=== PATIENT | male | born 1935 | race Caucasian/White ===

== ENCOUNTER 2016-11-27 08:19 | Emergency (ER) | payer MEDICARE, OTHER ==
[~2016-11-27] VITALS: Ht 177.8 cm; Wt 98.2 kg
[~2016-11-27 08:19] MED LIST: ACET650T7 PO; ALBU8.5H5 IH; ALLO300T74 PO; APIX5TAB; BUME1TAB17 PO; CALC-586 PO; CETI10TA56 PO; FINA5TAB42 PO; GLUC1TAB33 PO; NAPR250T; NITR0.4T39 SL; POTA10TA16 PO; SOTA80TA PO; TAMS0.4C20 PO; [UNRECOGNIZED DRUG - CODE] NS
[2016-11-27 08:20] VITALS: Ht 177.8 cm; Wt 98.2 kg
--- OUTSIDE RECORDS SUMMARY | 2016-11-27 08:23 | XMS REPORT | Referral Summary ---
Author Author [facility], [facility] Organization [facility], [facility] Address Unknown Phone Unavailable Care Team Providers Care Crude Unit Operator Name Role Phone Brooke Clark Primary Care Physician [phone] Encounter VC Date(s): 05/17/16 - 05/17/16 [facility] [place], [address] [place] [id number]- Discharge Diagnosis: Allergic rhinitis (disorder) Discharge Diagnosis: Gout (disorder) Discharge Diagnosis: Osteoarthritis Discharge Diagnosis: Actinic keratosis Discharge Diagnosis: High cholesterol Discharge Diagnosis: Abnormal blood sugar Discharge Diagnosis: Essential hypertension (disorder) Discharge Diagnosis: Asthma Discharge Diagnosis: COPD (chronic obstructive pulmonary disease) Discharge Diagnosis: 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 Discharge Disposition: 01-Home or Self Care Attending Physician: Owen Clark MD Admitting Physician: Owen Clark MD Vital Signs Most recent to 1 oldest [Reference Range]: Temperature Tympanic 36.7 degC [36.6-38.1 degC] (05/17/16 8:54 AM) Peripheral Pulse 65 bpm Rate [60-100 bpm] (05/17/16 8:54 AM) Blood Pressure 138/60 mmHg [90-140/60-90 mmHg] (05/17/16 8:54 AM) SpO2 97 % (05/17/16 8:54 AM) Problem List Condition Effective Dates Status Health Status Informant Actinic Active keratosis(Confirmed) Allergic rhinitis Active (disorder)(Confirmed ) Asthma(Confirmed) Active 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) Abnormal blood Active sugar(Confirmed) Cataract(Confirmed) Active Angina/Chest Active pain(Confirmed) COPD (chronic Active obstructive pulmonary disease)(Confirmed) Essential Active hypertension (disorder)(Confirmed ) Gout Active (disorder)(Confirmed ) High Active cholesterol(Confirme d) Hyperlipidemia(Confi Active rmed) HTN Active (hypertension)(Confi rmed) Basal cell Active carcinoma(Confirmed) Osteoarthritis(Confi Active rmed) Overweight(Confirmed Active ) Prostatism(Confirmed Active ) Pure Active hypercholesterolemia (disorder)(Confirmed ) Tobacco Active patient user(Confirmed) Chicken Active pox(Confirmed) Allergies, Adverse Reactions, Alerts No Known Medication Allergies Medications Aleve 220 mg oral tablet 1 tabs, Oral, BID, 0 Refill(s) Start Date: 09/04/14 Status: Ordered allopurinol 300 mg oral tablet 300 mg 1 tabs, Oral, Daily, # 90 tabs, 2 Refill(s) Start Date: 05/17/16 Status: Ordered Aspirin Low Dose 81 mg, Oral, Daily, 0 Refill(s) Start Date: 09/09/14 Status: Ordered bumetanide 1 mg oral tablet 1 mg 1 tabs, Oral, Daily, # 90 tabs, 2 Refill(s) Start Date: 05/17/16 Status: Ordered Calcium 600+D 1 tabs, Oral, Daily, 0 Refill(s) Start Date: 09/09/14 Status: Ordered Cartia XT 120 mg/24 hours oral capsule, extended release mg caps, Oral, Daily, 0 Refill(s) Start Date: 05/17/16 Status: Ordered clobetasol 0.05% topical ointment 1 [place], Topical, BID, 0 Refill(s) Start Date: 09/04/14 Status: Ordered Eliquis 5 mg oral tablet 5 mg 1 tabs, Oral, BID, # 60 tabs, 0 Refill(s) Start Date: 05/17/16 Status: Ordered Flomax 0.4 mg oral capsule 0.4 mg 1 caps, Oral, Daily, # 90 caps, 2 Refill(s) Start Date: 05/17/16 Status: Ordered glucosamine 1,000 mg, Oral, Daily, 0 Refill(s) Start Date: 09/09/14 Status: Ordered Klor-Con 10 oral tablet, extended release 10 mEq 1 tabs, Oral, Daily, # 90 tabs, 2 Refill(s) Start Date: 05/17/16 Status: Ordered metoprolol succinate 100 mg oral tablet, extended release 50 mg 0.5 tabs, Oral, Daily, # 90 tabs, 2 Refill(s) Start Date: 05/17/16 Status: Ordered Nasacort AQ 55 mcg/inh nasal spray 2 sprays, Nasal, BID, # 6 Each, 3 Refill(s) Start Date: 03/15/15 Status: Ordered Physical Therapy Physical Therapy, See Instructions, Eval and treat as indicated for achilles tendonitis., # 1 Each, 0 Refill(s) Start Date: 09/08/15 Status: Ordered Proscar 5 mg oral tablet See Instructions, Take 1 tablet by mouth daily, # 90 tabs, 2 Refill(s), Take 1 tablet by mouth daily Start Date: 05/17/16 Status: Ordered Ventolin HFA 90 mcg/inh inhalation aerosol 180 mcg 2 puffs, Inhalation, QID, # 3 Each, 3 Refill(s) Start Date: 03/15/15 Status: Ordered ZyrTEC 10 mg, Oral, Daily, 0 Refill(s) Start Date: 09/09/14 Status: Ordered Results Hematology Most recent to 1 oldest [Reference Range]: WBC [4.8-10.8 9.8 10*3/uL 10*3/uL] (05/17/16 9:49 AM) RBC [4.60-6.20] 4.59 *LOW* (05/17/16 9:49 AM) Hgb [14.0-18.0 14.3 gm/dL gm/dL] (05/17/16 9:49 AM) Hct [42.0-52.0 %] 41.9 % *LOW* (05/17/16 9:49 AM) MCV [82.0-99.0 fL] 91.3 fL (05/17/16 9:49 AM) MCH [27.0-32.0 pg] 31.2 pg (05/17/16 9:49 AM) MCHC [32.0-36.0 34.1 gm/dL gm/dL] (05/17/16 9:49 AM) RDW [11.5-14.5 %] 13.1 % (05/17/16 9:49 AM) Platelet [150-400 286 10*3/uL 10*3/uL] (05/17/16 9:49 AM) MPV [8.8-14.8 fL] 11.2 fL (05/17/16 9:49 AM) Immature 0.2 % Granulocytes (05/17/16 9:49 AM) [0.0-1.0 %] Neutrophils [51-75 69 % %] (05/17/16 9:49 AM) Lymphocytes [20-46 20 % %] (05/17/16 9:49 AM) Monocytes [4-11 %] 10 % (05/17/16 9:49 AM) Eosinophils [0-4 %] 2 % (05/17/16 9:49 AM) Basophils [0-2 %] 0 % (05/17/16 9:49 AM) Neutro Absolute 6.70 10*3 [1.90-7.00 10*3] (05/17/16 9:49 AM) Lymph Absolute 1.93 10*3 [0.80-3.30 10*3] (05/17/16 9:49 AM) [place] Absolute 0.97 10*3 [0.30-1.00 10*3] (05/17/16 9:49 AM) Eos Absolute 0.15 10*3 [0.00-0.50 10*3] (05/17/16 9:49 AM) Baso Absolute 0.02 10*3 [0.00-0.20 10*3] (05/17/16 9:49 AM) Chemistry Most recent to 1 oldest [Reference Range]: Sodium Lvl [135-144 138 mEq/L mEq/L] (05/17/16 9:49 AM) Potassium Lvl 4.6 mEq/L [3.5-5.2 mEq/L] (05/17/16 9:49 AM) Chloride [99-111 104 mEq/L mEq/L] (05/17/16 9:49 AM) CO2 [23-31 mEq/L] 27 mEq/L (05/17/16 9:49 AM) AGAP [3-20] 7 (05/17/16 9:49 AM) BUN [8-26 mg/dL] 15 mg/dL (05/17/16 9:49 AM) Glucose Lvl [70-99 101 mg/dL mg/dL] *HI* (05/17/16 9:49 AM) Creatinine Lvl 1.11 mg/dL [0.72-1.25 mg/dL] (05/17/16 9:49 AM) eGFR [>60 mL/min] >60 mL/min 1 (05/17/16 9:49 AM) Calcium Lvl 9.0 mg/dL [8.9-10.5 mg/dL] (05/17/16 9:49 AM) Albumin Lvl [3.4-4.8 4.4 gm/dL gm/dL] (05/17/16 9:49 AM) Total Protein 6.2 gm/dL [6.0-7.6 gm/dL] (05/17/16 9:49 AM) Globulin [1.8-4.0 1.8 gm/dL gm/dL] (05/17/16 9:49 AM) ALT [0-55 U/L] 18 U/L (05/17/16 9:49 AM) AST [5-34 U/L] 19 U/L (05/17/16 9:49 AM) Alk Phos [40-150 128 U/L U/L] (05/17/16 9:49 AM) Bili Total [0.2-1.2 1.0 mg/dL mg/dL] (05/17/16 9:49 AM) Uric Acid [3.5-7.2 5.4 mg/dL mg/dL] (05/17/16 9:49 AM) Chol [0-199 mg/dL] 170 mg/dL (05/17/16 9:49 AM) Trig [0-149 mg/dL] 326 mg/dL *HI* (05/17/16 9:49 AM) HDL [40-84 mg/dL] 31 mg/dL *LOW* (05/17/16 9:49 AM) LDL [0-130 mg/dL] 74 mg/dL (05/17/16 9:49 AM) VLDL Cholesterol 65 mg/dL [0-28 mg/dL] *HI* (05/17/16 9:49 AM) Cardiac Risk 5.5 [0.0-5.7] (05/17/16 9:49 AM) TSH with Reflex Free 1.61 T4 [0.35-4.94] (05/17/16 9:49 AM) Hgb A1c [4.1-5.6 %] 5.5 % (05/17/16 9:49 AM) eAvg Glucose 111.2 mg/dL (05/17/16 9:49 AM) 1Result Comment: Multiply eGFR results by 1.21 for race. Urinalysis Most recent to 1 oldest [Reference Range]: UA Color Yellow (05/17/16 10:16 AM) UA Appear Clear (05/17/16 10:16 AM) UA pH [5.0-8.0] 6.0 (05/17/16 10:16 AM) UA Leuk Est Negative [Negative] (05/17/16 10:16 AM) UA Nitrite Negative [Negative] (05/17/16 10:16 AM) UA Protein Negative [Negative] (05/17/16 10:16 AM) UA Glucose Negative [Negative] (05/17/16 10:16 AM) UA Ketones Trace [Negative] *ABN* (05/17/16 10:16 AM) UA Urobilinogen 0.2 mg/dL [<1.0 mg/dL] (05/17/16 10:16 AM) UA Bili [Negative] Negative (05/17/16 10:16 AM) UA Blood [Negative] Negative (05/17/16 10:16 AM) UA Spec Grav 1.023 [1.003-1.030] (05/17/16 10:16 AM) Type Clean Catch (05/17/16 10:16 AM) Immunizations Vaccine Date Refusal Reason tetanus/diphth/pertuss (Tdap) adult/adol 05/29/06 influenza virus vaccine, inactivated 06/16/15 influenza virus vaccine, inactivated 06/25/07 pneumococcal 23-polyvalent vaccine 07/04/05 zoster vaccine live 01/08/09 Procedures Procedure Date Related Diagnosis Body Site Destruction (eg, laser surgery, 05/17/16 electrosurgery, cryosurgery, chemosurgery, surgical curettement), premalignant lesions (eg, actinic keratoses); first lesion Transesophageal echocardiogram 06/28/15 Cataract of left eye 2009 Nasal Septum Repair 06/15/09 Sinus Surgery 06/15/09 Colonoscopy1 2006 Knee replacement-l 2005 Meniscus Repair 2002 Repair broken knee cap 1946 Cataract of right eye 1cscope wnl, pr hx colon polyps, repeat 5 years. 1998 cscope x3 polyps repeat 5 years;history of polyps repeat 2016 Social History Social History Type Response Smoking Status Former smoker; Type: Cigarettes Assessment and Plan Extracted from: Title: Ambulatory Patient Education Author: Owen Clark MD Date: Allergy Allergies An allergy is an abnormal reaction to a substance by the body's defense system ( immune system). Allergies can develop at any age. WHAT CAUSES ALLERGIES? An allergic reaction happens when the immune system mistakenly reacts to a normally harmless substance, called an allergen, as if it were harmful. The immune system releases antibodies to fight the substance. Antibodies eventually release a chemical called histamine into the bloodstream. The release of histamine is meant to protect the body from infection, but it also causes discomfort. An allergic reaction can be triggered by: Eating an allergen. Inhaling an allergen. Touching an allergen. WHAT TYPES OF ALLERGIES ARE THERE? There are many types of allergies. Common types include: Seasonal allergies. People with this type of allergy are usually allergic to substances that are only present during certain seasons, such as molds and pollens. Food allergies. Drug allergies. Insect allergies. Animal dander allergies. WHAT ARE SYMPTOMS OF ALLERGIES? Possible allergy symptoms include: Swelling of the lips, face, tongue, mouth, or throat. Sneezing, coughing, or wheezing. Nasal congestion. Tingling in the mouth. Rash. Itching. Itchy, red, swollen areas of skin (hives). Watery eyes. Vomiting. Diarrhea. Dizziness. Lightheadedness. Fainting. Trouble breathing or swallowing. Chest tightness. Rapid heartbeat. HOW ARE ALLERGIES DIAGNOSED? Allergies are diagnosed with a medical and family history and one or more of the following: Skin tests. Blood tests. A food diary. A food diary is a record of all the foods and drinks you have in a day and of all the symptoms you experience. The results of an elimination diet. An elimination diet involves eliminating foods from your diet and then adding them back in one by one to find out if a certain food causes an allergic reaction. HOW ARE ALLERGIES TREATED? There is no cure for allergies, but allergic reactions can be treated with medicine. Severe reactions usually need to be treated at a hospital. HOW CAN REACTIONS BE PREVENTED? The best way to prevent an allergic reaction is by avoiding the substance you are allergic to. Allergy shots and medicines can also help prevent reactions in some cases. People with severe allergic reactions may be able to prevent a life- threatening reaction called anaphylaxis with a medicine given right after exposure to the allergen. This information is not intended to replace advice given to you by your health care provider. Make sure you discuss any questions you have with your health care provider. Document Released: 11/13/2003 Document Revised: 09/10/2015 Document Reviewed: [employer] Patient Information 2016 [place]. No follow up information was provided. Extracted from: Title: Office Visit Note Author: Owen Clark MD Date: 05/17/16 Assessment/Plan Abnormal blood sugar This issue was reviewed, appears stable, and current therapy continued except as mentioned. Appropriate lab was reviewed from the most recent appropriate entry and lab was ordered if needed in the cpoe/nursing orders, and follow up recommended generally in 90 days and no later then six months. Actinic keratosis Cryotherapy 10 seconds x2. Routine wound care given. RTC in 30 days if not resolved. Schedule lesion removal here or with Derm for arm lesion. Allergic rhinitis (disorder) This issue was reviewed, appears stable, and current therapy continued except as mentioned. Appropriate lab was reviewed from the most recent appropriate entry and lab was ordered if needed in the cpoe /nursing orders, and follow up recommended generally in 90 days and no later then six months. Asthma This issue was reviewed, appears stable, and current therapy continued except as mentioned. Appropriate lab was reviewed from the most recent appropriate entry and lab was ordered if needed in the cpoe/nursing orders, and follow up recommended generally in 90 days and no later then six months. 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 This issue was reviewed, appears stable, and current therapy continued except as mentioned. Appropriate lab was reviewed from the most recent appropriate entry and lab was ordered if needed in the cpoe/nursing orders, and follow up recommended generally in 90 days and no later then six months. Refill meds. COPD (chronic obstructive pulmonary disease) This issue was reviewed, appears stable, and current therapy continued except as mentioned. Appropriate lab was reviewed from the most recent appropriate entry and lab was ordered if needed in the cpoe/nursing orders, and follow up recommended generally in 90 days and no later then six months. Essential hypertension (disorder) This issue was reviewed, appears stable, and current therapy continued except as mentioned. Appropriate lab was reviewed from the most recent appropriate entry and lab was ordered if needed in the cpoe/nursing orders, and follow up recommended generally in 90 days and no later then six months. The patient reports their blood pressure has been stable at home and is not having any significant or related problems. There has been no chest pain, chest pressure, soa/manrique. Gout (disorder) This issue was reviewed, appears stable, and current therapy continued except as mentioned. Appropriate lab was reviewed from the most recent appropriate entry and lab was ordered if needed in the cpoe/nursing orders, and follow up recommended generally in 90 days and no later then six months. Refill meds, lab pending. High cholesterol This issue was reviewed, appears stable, and current therapy continued except as mentioned. Appropriate lab was reviewed from the most recent appropriate entry and lab was ordered if needed in the cpoe/nursing orders, and follow up recommended generally in 90 days and no later then six months. Lab pending. Osteoarthritis This issue was reviewed, appears stable, and current therapy continued except as mentioned. Appropriate lab was reviewed from the most recent appropriate entry and lab was ordered if needed in the cpoe/nursing orders, and follow up recommended generally in 90 days and no later then six months.
--- OUTSIDE RECORDS SUMMARY | 2016-11-27 08:23 | XMS REPORT | Continuity of Care Document ---
Author Author [facility] Organization [facility] Address Unknown Phone Unavailable Support Name Relationship Address Phone LAWRENCE CALHOUN MD Caregiver [address] [place] [address] Unavailable DEVANTE AMATO MD Caregiver [address] [place] [address] Unavailable GRACIE SWENSON Next Of Kin [address] [place] [address] Insurance Providers Guarantor Adryan Swenson Address [address] [place] [address] Email [email or web address] Payer Medicare Policy Number [id number] Subscriber's Name Adryan Swenson Relationship 18 Self Payer [facility] Preferred Policy Number [id number] Subscriber's Name Gracie Swenson Relationship 01 Spouse Group Number [id number] Advance Directives Directive Response Recorded Date/Time Ordered Resuscitation Status Full Code 09/20/16 8:50am Resuscitation Documents on File No 09/20/16 8:48am DPOA for Healthcare Only Polly TURNER AND NISHA-DAUGHTERS 09/20/16 8:48am Living Will Yes 09/20/16 8:48am Problems Active Problems Medical Problem Onset Date Status Atrial fibrillation with rapid ventricular response Unknown Acute New onset atrial fibrillation Unknown Acute New onset atrial fibrillation Unknown Acute Medications Current Home Medications Medication Dose Units Route Directions Days Qty Instructions Start Date Acetaminophen (Arthritis Pain Relief) 650 Mg Tablet.er 1,300 Oral Daily 06/28/15 Albuterol Sulfate (Proair Hfa) 8.5 Gm Aerosol 2 Puff Inhalation As Needed 11/17/09 Allopurinol 300 Mg Tablet 300 Mg Oral Daily 11/17/09 Apixaban (Eliquis) 5 Mg Tablet Twice A Day 09/20/16 Bumetanide 1 Mg Tablet 1 Tab Oral Daily 06/28/15 Calcium Carbonate/Vitamin D3 (Calcium + D 600 Mg Tablet) 1 Tab Tablet 1 Tab Oral Daily 11/17/09 Cetirizine Hcl (Zyrtec) 10 Mg Tablet 10 Mg Oral Daily 09/20/11 Finasteride 5 Mg Tablet 1 Tab Oral Daily 06/28/15 Gluc Hcl/Gluc Garrido/Ac-D-Glucos (Glucosamine Complex Caplet) 1 G Tablet 1 G Oral Daily 11/17/09 Naproxen (Naprosyn) 250 Mg Tablet 1 Tab Bedtime 04/20/14 Nitroglycerin 0.4 Mg Tab.subl 1 Tab Sublingual Prn Q5 Minutes X3 as needed for Chest Pain 25 04/21/14 Potassium Chloride (Klor-Con M10) 10 Meq Tablet 10 Meq Oral Give With Breakfast Take 1 tablet, by mouth, one time a day (with breakfast). Sotalol Hcl (Sotalol) 80 Mg Tablet 80 Mg Oral Before Meals Twice A Day 30 Days 60 Tablet Take 1 tablet, by mouth, 2 times a day (before meals). Tamsulosin Hcl (Flomax) 0.4 Mg Cap.sr.24h 0.4 Mg Oral Daily 11/17 Triamcinolone Acetonide (Nasacort) 10 Gm Aer.w.adap 2 [place] Nasal Daily 11/17/09 Past Home Medications Medication Directions Ordered Status Aspirin (Aspir 81) 81 Mg Tablet.dr, 1 Tab Oral Daily 04/20/14 Discontinued Fenofibrate Nanocrystallized (Tricor) 145 Mg Tablet, 145 Mg Oral Daily Discontinued Lisinopril/Hydrochlorothiazide (Lisinopril-Hctz 10-12.5 Mg Tab) 1 Each Tablet, 1 Tab Oral Daily 04/20/14 Discontinued Loratadine (Claritin) 10 Mg Tablet, 10 Mg Oral Daily 11/17/09 Discontinued Metoprolol Succinate 100 Mg Tab.er.24h, 0.5 Tab Oral Daily 06/28/15 Discontinued Metoprolol Succinate 100 Mg Tab.er.24h, 1 Tab Oral Daily 04/21/14 Discontinued Metoprolol Succinate 50 Mg Tab.sr.24h, 50 Mg Oral Daily 11/17/09 Discontinued Social History Social History Problem Response Recorded Date/Time Onset Date Status Reason for Hospitalization CARDIOVERSION 09/20/2016 3:32pm Not Applicable Not Applicable Hx Substance Use No 06/28/2015 11:39am Not Applicable Not Applicable Hx Alcohol Use Y SELDOM 06/25/2015 3:07pm Not Applicable Not Applicable Has the pt used tobacco in the last 12 months No 09/20/2016 8:52am Not Applicable Not Applicable Tobacco Usage none 04/20/2014 8:57am Not Applicable Not Applicable Query Response Start Date Stop Date Smoking Status Former smoker Hospital Discharge Instructions Instructions: Care Instructions: I was in the hospital because (patient own words): PATIENT STATES, "ZAP MY HEART" Discharge Diet: cardiac Discharge Activity: ad gaye Follow Up Appointments: FOLLOW UP WITH DR. CALHOUN IN HIS OFFICE SCHEDULED ON 10/05/2016 AT 11:15. Pending Lab / Results: No Pending Lab Patient Instructions: no driving or major decision making x24hrs Expected Signs/Symptoms: mild nausea fatigue or dizziness mild askin itch in chest Notify Physician If: severe dizziness ,cp , dyspnea ,redness During Business Hours:: Please call the physician's office at After Business Hours:: Please call [phone] and have the ore bridge operator page the physician. Pain Management/Treatment: n/a Wound/Incision Care: n/a Condition at time of discharge: Good Plan of Care Discharge Date 09/20/16 3:50pm Instructions/Education Provided DI for Cardioversion Prescriptions See Medication Section Functional Status Query Response Date Recorded Mobility Status Ambulatory September 20, 2016 8:50am Assistive Devices None September 20, 2016 8:50am Activity Limitations Weakness Fatigue September 20, 2016 8:50am Feeding Ability Independent September 20, 2016 8:50am Toileting Ability Independent September 20, 2016 8:50am Grooming Ability Independent September 20, 2016 8:50am Dressing Ability Independent September 20, 2016 8:50am Driving Ability Independent September 20, 2016 8:50am Housework Ability Independent September 20, 2016 8:50am Meal Preparation Ability Independent September 20, 2016 8:50am Stair Climbing Ability Independent September 20, 2016 8:50am Ability to complete ADL's impeded by No change September 20, 2016 8:50am Cognitive/Perceptual Impairments Impaired vision September 20, 2016 8:50am Visual Assistive Devices Glasses With patient September 20, 2016 8:50am Preferred Method of Learning Hands on September 20, 2016 8:50am Allergies, Adverse Reactions, Alerts Allergen Type Severity Reaction Status Last Updated NKDA Allergy Unknown Active 09/20/16 Immunizations Query Response on File Recorded Date/Time Hx Influenza Vaccination Y JUNE 2016 09/20/16 8:52am Hx Pneumococcal Vaccination Y HAS HAD BOTH AND 09/20/16 8:52am Hx Influenza Vaccination Y JUNE 2016 09/20/16 8:52am Influenza Vaccine Hx JUNE 2016 09/20/16 12:27pm Vital Signs Acute Vital Signs Vital Response Date/Time Temperature (Fahrenheit) 98.6 deg F (96.8 - 99.1) 09/20/2016 9:24am Temperature (Calculated Celsius) 37.58437 degrees C (36.0 - 37.3) 09/20/2016 9:24am Pulse Rate (adult) 75 bpm (60 - 100) 09/20/2016 3:00pm Respiratory Rate 16 breaths/min (10 - 20) 09/20/2016 1:21pm O2 Sat by Pulse Oximetry 96 % (90 - 100) 09/20/2016 3:00pm Oxygen Delivery Method Room Air 09/20/2016 3:00pm Oxygen Delivery Method Room Air 09/20/2016 9:24am Oxygen Flow Rate 2.00 L/min 09/20/2016 1:21pm Blood Pressure 154/127 mm Hg 09/20/2016 3:00pm Blood Pressure Source Automatic Cuff 09/20/2016 3:00pm Height (Feet) 5 feet 09/20/2016 8:46am Height (Inches) 10.00 inches 09/20/2016 8:46am Weight (Kilograms) 96.700 kg 09/20/2016 8:46am Body Mass Index (BMI) 30.6 09/20/2016 8:46am Results Laboratory Results Test Name Result Units Flags Reference Collection Date/Time Result Date/ Time Comments White Blood Count 8.6 T/MM3 4.5-11.0 09/20/2016 9:12am 09/20/2016 9: 48am Red Blood Count 4.78 M/MM3 4.50-5.90 09/20/2016 9:12am 09/20/2016 9: 48am Hemoglobin 14.6 GM/DL 13.5-17.5 09/20/2016 9:12am 09/20/2016 9:48am Hematocrit 43.6 % 41-53 09/20/2016 9:12am 09/20/2016 9:48am Mean Corpuscular Volume 91.2 UM3 80-100 09/20/2016 9:12am 09/20/2016 9: 48am Mean Corpuscular Hemoglobin 30.5 UUG 26-34 09/20/2016 9:2016 9:48am Mean Corpuscular Hemoglobin Concent 33.5 GM/DL 31-37 09/20/2016 9:09/20/2016 9:48am RDW Standard Deviation 42.6 FL 36.9-50.2 09/20/2016 9:09/20/2016 9 :48am Platelet Count 243 T/MM3 130-400 09/20/2016 9:09/20/2016 9:48am Mean Platelet Volume 11.2 UM3 9.4-12.4 09/20/2016 9:09/20/2016 9: 48am Neutrophils (%) (Auto) 68.1 % H 33-66 09/20/2016 9:09/20/2016 9: 48am Lymphocytes (%) (Auto) 22.0 % L 23-45 09/20/2016 9:09/20/2016 9: 48am Monocytes (%) (Auto) 7.3 % 0-9.0 09/20/2016 9:09/20/2016 9:48am Eosinophils (%) (Auto) 2.3 % 0-4 09/20/2016 9:09/20/2016 9:48am Basophils (%) (Auto) 0.2 % 0-2 09/20/2016 9:09/20/2016 9:48am Immature Granulocyte % (Auto) 0.1 % 0.0-0.5 09/20/2016 9:2016 9:48am Absolute Neutrophils (auto) 5.9 T/MM3 1.8-7.7 09/20/2016 9:2016 9:48am Absolute Lymphocytes (auto) 1.9 T/MM3 1-4.8 09/20/2016 9:2016 9:48am Absolute Monocytes (auto) 0.6 T/MM3 0-0.8 09/20/2016 9:09/20/2016 9:48am Absolute Eosinophils (auto) 0.2 T/MM3 0-0.5 09/20/2016 9:2016 9:48am Absolute Basophils (auto) 0.0 T/MM3 0-0.2 09/20/2016 9:1209/20/2016 9:48am Absolute Immature Granulocyte (auto 0.01 T/MM3 0.00-0.03 09/20/2016 9: 1209/20/2016 9:48am Prothromb Time International Ratio 1.36 H 0.76-1.04 09/20/2016 9:1209/20/2016 9:55am THERAPUTIC RANGE=2.00-3.00 FOR ANTI-THROMBOSIS THERAPUTIC RANGE=2.50-3.50 FOR IMPLANTED VALVE Icterus Index < 2 0-7 09/20/2016 9:1209/20/2016 9:59am Chemistry Specimen Hemolysis < 15 0-25 09/20/2016 9:1209/20/2016 9 :59am 0-25: Specimen Exhibited No Hemolysis. Turbidity < 20 0-20 09/20/2016 9:1209/20/2016 9:59am Sodium Level 143 MEQ/L 134-144 09/20/2016 9:1209/20/2016 9:59am Potassium Level 4.3 MEQ/L 3.6-5 09/20/2016 9:1209/20/2016 9:59am Chloride Level 102 MEQ/L 98-107 09/20/2016 9:1209/20/2016 9:59am Carbon Dioxide Level 31 MEQ/L H 22-30 09/20/2016 9:1209/20/2016 9: 59am Anion Gap 10 MEQ/L 5-15 09/20/2016 9:1209/20/2016 9:59am Blood Urea Nitrogen 20.0 MG/DL 9-09/20/2016 9:1209/20/2016 9: 59am Creatinine 1.2 MG/DL 0.8-1.5 09/20/2016 9:1209/20/2016 9:59am BUN/Creatinine Ratio 17 RATIO 6-26 09/20/2016 9:1209/20/2016 9:59am Glomerular Filtration Rate Calc 58 09/20/2016 9:1209/20/2016 9: 59am Glucose Level 108 MG/DL 75-110 09/20/2016 9:1209/20/2016 9:59am Calculated Osmolality 279 MOSM/KG 261-280 09/20/2016 9:1209/20/2016 9:59am Calcium Level 9.2 MG/DL 8.4-10.2 09/20/2016 9:1209/20/2016 9:59am Total Bilirubin 1.50 MG/DL H 0.20-1.30 09/20/2016 9:1209/20/2016 9: 59am Alkaline Phosphatase 113 U/L 38-126 09/20/2016 9:1209/20/2016 9: 59am Total Protein 6.6 G/DL 6.3-8.2 09/20/2016 9:1209/20/2016 9:59am Albumin 4.0 G/DL 3.5-5.0 09/20/2016 9:1209/20/2016 9:59am Globulin 2.6 G/DL 2.4-3.6 09/20/2016 9:1209/20/2016 9:59am Albumin/Globulin Ratio 1.5 RATIO 1.1-2.2 09/20/2016 9:1209/20/2016 9 :59am Aspartate Amino Transf (AST/SGOT) 27 U/L 17-59 09/20/2016 9:122016 9:59am Alanine Aminotransferase (ALT/SGPT) 33 U/L 21-72 09/20/2016 9:12 9:59am Magnesium Level 1.8 MG/DL 1.6-2.3 09/20/2016 9:1209/20/2016 9:59am Thyroid Stimulating Hormone (TSH) 1.63 MIU/L 0.47-4.68 09/20/2016 9: 1209/20/2016 10:29am Procedures No known history of procedures. Encounters Encounter Location Arrival/Admit Date Discharge/Depart Date Attending Provider Departed [facility] 09/20/16 8:22am 09/20/16 3:50pm LAWRENCE CALHOUN MD
--- OUTSIDE RECORDS SUMMARY | 2016-11-27 08:23 | XMS REPORT | Continuity of Care Document ---
Author Author [facility] Organization [facility] Address Unknown Phone Unavailable Support Name Relationship Address Phone ENRIQUE FOUNTAIN MD Caregiver [address] [place] [phone] ARA LEE MD Caregiver [address] [place] [address] LAWRENCE CALHOUN MD Caregiver [address] [facility] [address] [place] [phone] GRACIE SWENSON Next Of Kin [address] [place] [address] Insurance Providers Payer Name Policy Number Subscriber Name Relationship Medicare [id number] Adryan Swenson 18 [facility] Other [id number] Gracie Swenson 01 Spouse Advance Directives Directive Response Recorded Date/Time Advanced Directives Type None 04/20/14 11:19am Ordered Resuscitation Status Full Code 04/20/14 10:17am Chief Complaint and Reason for Visit Chief Complaint NEW ONSET ATRIAL FIB WITH RVR Reason for Visit New onset atrial fibrillation Atrial fibrillation with rapid ventricular response New onset atrial fibrillation Problems Medical Problems Problem Onset Date Status New onset atrial fibrillation Unknown Active Atrial fibrillation with rapid ventricular response Unknown Active New onset atrial fibrillation Unknown Active Medications Medication Dose Route Sig Days/Qty Instructions Order Date Discontinued Date Status Tamsulosin Hcl 0.4 Mg PO DAILY 11/17/09 Active Metoprolol Succinate 50 Mg PO DAILY 11/17/09 04/21/14 Discontinued Allopurinol 300 Mg PO DAILY 11/17/09 Active Fenofibrate Nanocrystallized 145 Mg PO DAILY 11/17/09 04/20/14 Discontinued Loratadine 10 Mg PO DAILY 11/17/09 09/20/11 Discontinued Triamcinolone Acetonide 2 [place] NS TWICE A DAY 11/17/09 Active Albuterol Sulfate 2 Puff IH NEEDED 11/17/09 Active Gluc Hcl/Gluc Garrido/Ac-D-Glucos 1 G PO DAILY 11/17/09 Active Calcium Carbonate/Vitamin D3 2 Tab PO DAILY 11/17/09 Active Cetirizine Hcl 10 Mg PO DAILY 09/20/11 Active Lisinopril/Hydrochlorothiazide 1 Tab PO DAILY 04/20/14 04/21/14 Discontinued Aspirin 1 Tab PO DAILY 04/20/14 Active Naproxen 1 Tab TWICE A DAY 04/20/14 Active Nitroglycerin 1 Tab SL PRN Q5 MINUTES X3 PRN CHEST PAIN 25 Qty Active Metoprolol Succinate 1 Tab PO DAILY 90 Qty 04/21/14 Active Social History Social History Problem Response Recorded Date/Time Smoking Status Former smoker 04/20/2014 11:13am When did patient START smoking? 10 YRS. OLD 04/20/2014 11:13am When did patient STOP smoking? 1970 04/20/2014 11:13am Hx Substance Use No 04/20/2014 10:25am Hx Alcohol Use Y SELDOM 04/20/2014 10:25am Has the pt used tobacco in the last 12 months No 04/20/2014 11:13am Hospital Discharge Instructions Instructions: Care Instructions: Reason for Hospitalization: NEW ONSET A FIB I was in the hospital because (patient own words): "I WAS HAVING POSSIBLE HEART PROBLEMS" Discharge Diet: HEART HEALTHY Discharge Activity: REGULAR ACTIVITY; NO HEAVY EXERTION Follow Up Appointments: STRESS ECHOCARDIOGRAM 05/01 AT 12:00 FOLLOW UP APPOINTMENT WITH DR. CALHOUN 05/18 AT 2:45 Condition at time of discharge: Good Wound/Incision Care: WOUND VAC PROVIDED BY [facility] Condition at time of discharge: Good Worsening abdominal pain, fever, nausea, diarrhea or inability to keep PO fluids down General Information: n/a Condition at time of discharge: Good Discharge Patient: Goal: Understand discharge plan Patient Instructions: see patient instructions Notify Physician If: Call your Surgeon if you have: 1.Chest pain, difficulty breathing, fever>100.5 degrees, chills, heart rate >100, confusion, or persistent nausea/vomitting. 2.Severe pain, swelling, redness, or warmth in either of your legs. 3.During office hours, call [phone] 4. After hours, please call [facility] at [phone], and have the broom machine operator page your Surgeon IN THE EVENT OF AN EMERGENCY, seek medical care at the nearest Emergency Room General Information: Please make a follow up with Dr. Waller in regards to the questionable pulmonary nodule seen on CXR. It likely appears as artifact, but follow up is warrented in 2 weeks. Condition at time of discharge: Good Care Plan Discharge Patient: Goal: Understand discharge plan Patient Instructions: see patient instructions Plan of Care Discharge Date 04/21/14 1:55pm Disposition 01 DISCHARGED HOME, SELF-CARE Instructions/Education Provided Atrial Fibrillation Nitroglycerin Metoprolol Prescriptions See Medications Section Functional Status Query Response Date Recorded Physical Hygiene Self April 20, 2014 10:25am Disabilities None April 20, 2014 10:25am Devices Used None April 20, 2014 10:25am Dressing Self April 20, 2014 10:25am Ambulation Self April 20, 2014 10:25am Diet Self April 20, 2014 10:25am Mental Status Alert April 20, 2014 10:13am Disabilities None April 20, 2014 10:25am Devices Used None April 20, 2014 10:25am Physical Hygiene Self April 20, 2014 10:25am Dressing Self April 20, 2014 10:25am Ambulation Self April 20, 2014 10:25am Diet Self April 20, 2014 10:25am Allergies, Adverse Reactions, Alerts Allergen Type Severity Reaction Status Last Updated NKDA Allergy Unknown Active 04/20/14 Immunizations Name Given Type Hx Influenza Vaccination Y FALL 2012 Historical Hx Pneumococcal Vaccination Y 2006 Historical Hx Influenza Vaccination Y FALL 2012 Historical Vital Signs Acute Vital Signs Vital Response Date/Time Temperature (Fahrenheit) 97.2 deg F (96.8 - 99.1) Temperature (Calculated Celsius) 36.94924 degrees C (36.0 - 37.3) Temperature Source Oral Pulse Rate (adult) 54 bpm (60 - 100) Height 5 ft 10 in Weight 216 lb Body Mass Index 31.0 kg/m^2 Results Test Source Date Result Interp. Ref. Range Comments Activated Partial Thromboplast Time April 20, 2014 8:18am 29.3 SEC N 24 -36 Alanine Aminotransferase (ALT/SGPT) April 20, 2014 8:18am 34 U/L N 21- 72 Albumin April 20, 2014 8:18am 4.0 G/DL N 3.5-5.0 Albumin/Globulin Ratio April 20, 2014 8:18am 1.7 RATIO N 1.1-2.2 Alkaline Phosphatase April 20, 2014 8:18am 120 U/L N 38-126 Anion Gap April 20, 2014 8:18am 11 MEQ/L N 5-15 Aspartate Amino Transf (AST/SGOT) April 20, 2014 8:18am 27 U/L N 17-59 BUN/Creatinine Ratio April 20, 2014 8:18am 16 RATIO N 6-26 Basophils # (Auto) April 20, 2014 8:18am 0.0 T/MM3 N 0-0.2 Basophils (%) (Auto) April 20, 2014 8:18am 0.3 % N 0-2 Blood Urea Nitrogen April 20, 2014 8:18am 17.0 MG/DL N 9-20 Calcium Level April 20, 2014 8:18am 8.8 MG/DL N 8.4-10.2 Calculated Osmolality April 20, 2014 8:18am 257 MOSM/KG L 261-280 Carbon Dioxide Level April 20, 2014 8:18am 24 MEQ/L N 22-30 Chemistry Specimen Hemolysis April 21, 2014 5:17am 21 N 0-25 0-25: No Hemolysis.26-70: Slight Hemolysis - can falsely elevate K and Urine Protein. 71-285: Moderate Hemolysis - can falsely elevate K, Troponin I, CA 19-9, PTH, CSF GLucose, and Urine Protein, and can falsely decrease Phenytoin. 286-999: Gross Hemolysis - can falsely elevate K, Troponin I, CA 19-9, PTH, CSF Glucose, and Urine Protine, and can falsely decrease Phenytoin. Recommend specimen recollection. Chloride Level April 20, 2014 8:18am 96 MEQ/L L 98-107 Creatinine April 20, 2014 8:18am 1.1 MG/DL N 0.8-1.5 Eosinophils # (Auto) April 20, 2014 8:18am 0.5 T/MM3 N 0-0.5 Eosinophils (%) (Auto) April 20, 2014 8:18am 4.3 % H 0-4 Globulin April 20, 2014 8:18am 2.4 G/DL N 2.4-3.6 Glomerular Filtration Rate Calc April 20, 2014 8:18am 65 - Glucose Level April 20, 2014 8:18am 138 MG/DL H 75-110 Hematocrit April 20, 2014 8:18am 43.3 % N 41-53 Hemoglobin April 20, 2014 8:18am 15.5 GM/DL N 13.5-17.5 Icterus Index April 20, 2014 8:18am < 2 0-7 Immature Granulocyte # (Auto) April 20, 2014 8:18am 0.02 T/MM3 N 0.00- 0.03 Immature Granulocyte % (Auto) April 20, 2014 8:18am 0.2 % N 0.0-0.5 Lymphocytes # (Auto) April 20, 2014 8:18am 2.1 T/MM3 N 1-4.8 Lymphocytes (%) (Auto) April 20, 2014 8:18am 18.5 % L 23-45 Mean Corpuscular Hemoglobin April 20, 2014 8:18am 31.7 UUG N 26-34 Mean Corpuscular Hemoglobin Concent April 20, 2014 8:18am 35.8 GM/DL N 31-37 Mean Corpuscular Volume April 20, 2014 8:18am 88.5 UM3 N 80-100 Mean Platelet Volume April 20, 2014 8:18am 11.0 UM3 N 9.4-12.4 Monocytes # (Auto) April 20, 2014 8:18am 0.7 T/MM3 N 0-0.8 Monocytes (%) (Auto) April 20, 2014 8:18am 6.4 % N 0-9.0 FL-Ote-E-Type Natriuretic Peptide April 20, 2014 8:18am 229 PG/ML H 0- 175 Rule in cut points: <50 years old=450; 50-75 years old=900; >75 years old=1800; When utilizing ProBNP rule-in cut points, adjustment for impaired renal function is typically not required. Neutrophils # (Auto) April 20, 2014 8:18am 8.1 T/MM3 H 1.8-7.7 Neutrophils (%) (Auto) April 20, 2014 8:18am 70.3 % H 33-66 Platelet Count April 20, 2014 8:18am 312 T/MM3 N 130-400 Potassium Level April 20, 2014 8:18am 4.5 MEQ/L N 3.6-5 Prothromb Time International Ratio April 21, 2014 5:17am 1.04 N 0.81- 1.09 THERAPUTIC RANGE=2.00-3.00 FOR ANTI-THROMBOSIS THERAPUTIC RANGE=2.50- 3.50 FOR IMPLANTED VALVE RDW Standard Deviation April 20, 2014 8:18am 38.9 FL N 36.9-50.2 Red Blood Count April 20, 2014 8:18am 4.89 M/MM3 N 4.50-5.90 Sodium Level April 20, 2014 8:18am 131 MEQ/L L 134-144 Thyroid Stimulating Hormone (TSH) April 20, 2014 8:18am 1.57 MIU/L N 0.47-4.68 Total Bilirubin April 20, 2014 8:18am 1.00 MG/DL N 0.20-1.30 Total Protein April 20, 2014 8:18am 6.4 G/DL N 6.3-8.2 Troponin I April 21, 2014 5:17am 0.037 ng/ml N 0-0.12 COMMENT TROPININ Q8H X3 Turbidity April 20, 2014 8:18am < 20 0-20 White Blood Count April 20, 2014 8:18am 11.5 T/MM3 H 4.5-11.0 Name: ADRYAN SWENSON Unit #: [id number] : 1935 Sex: M Loc / Svc: ED DOS: 04/20/14 Signed Report #: [id number] DIAGNOSTIC IMAGING REPORT TYPE OF EXAM: CHEST 1 VIEW Dictated By: GUILHERME WALLER MD INDICATION: ITS.REASON: chest pain, afib CHEST 1 VIEW: Comparison: None FINDINGS: The lungs are clear. There is no abnormal airspace opacity, pleural effusion or pneumothorax identified. The heart size, pulmonary vasculature and mediastinum are within normal limits. IMPRESSION: No acute cardiopulmonary abnormality. . Procedures No known history of procedures. Encounters Encounter Location Date/Time Discharged Inpatient [facility] 04/20/14 10:17am Recent Diagnosis New onset atrial fibrillation Atrial fibrillation with rapid ventricular response New onset atrial fibrillation
--- OUTSIDE RECORDS SUMMARY | 2016-11-27 08:23 | XMS REPORT | Continuity of Care Document ---
Author Author [facility] Organization [facility] Address Unknown Phone Unavailable Allergies Active Description Code Type Severity Reaction Onset Reported/Identified Relationship to Patient Clinical Status Yes No Known Medication Allergies NKMA N/A N/A 09/09/2014 Medications Problems Procedures Results Encounters ACCT No. Visit Date/Time Discharge Status Pt. Type Provider Facility Loc./Unit Complaint [id number] 11/15/2016 07:45:00 2016 23:59:00 DIS Outpatient Owen Clark [facility] New FM 6 mo galilea [id number] 05/17/2016 08:43:00 2015 23:59:00 DIS Outpatient Owen Clark [facility] New FM TCPA medication check [id number] 01/10/2016 13:53:00 2015 23:59:00 DIS Outpatient Guillermina Menendez [facility] New FM ACC hurt right foot [id number] 11/18/2015 07:41:00 2015 23:59:00 DIS Outpatient Owen Clark [facility] New FM Followup pain in ankle [id number] 09/08/2015 14:44:00 2015 23:59:00 DIS Outpatient Owen Clark [facility] New FM Tendonitis in right foot [id number] 08/04/2015 14:45:00 2014 23:59:00 DIS Outpatient Owen Clark [facility] FM NPV Dr Jennings pt to est [id number] 03/15/2015 13:20:00 2014 23:59:00 DIS Outpatient Calixto Jennings [facility] New FM med ck [id number] 09/09/2014 10:13:00 2014 23:59:00 DIS Outpatient Calixto Jennings [facility] New FM Check up
--- OUTSIDE RECORDS SUMMARY | 2016-11-27 08:23 | XMS REPORT | Referral Summary ---
Author Author [facility], [facility] Organization [facility] Address Unknown Phone Unavailable Care Team Providers Care Shipping Room Supervisor Name Role Phone Brooke Clark Primary Care Physician [phone] Encounter VC Date(s): 03/15/15 - 03/15/15 [facility], [address] [place] [id number] Discharge Disposition: 01-Home or Self Care Attending Physician: Calixto Jennings MD Admitting Physician: Calixto Jennings MD Vital Signs Most recent to 1 oldest [Reference Range]: Temperature Tympanic 36.1 degC [36.6-38.1 degC] *LOW* (03/15/15 1:31 PM) Peripheral Pulse 76 bpm Rate [60-100 bpm] (03/15/15 1:31 PM) Blood Pressure 150/68 mmHg [90-140/60-90 mmHg] *HI* (03/15/15 1:31 PM) Problem List Condition Effective Dates Status Health Status Informant Allergic rhinitis Active (disorder)(Confirmed ) Asthma(Confirmed) Active 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) Cataract(Confirmed) Active Angina/Chest Active pain(Confirmed) COPD (chronic [...] # 90 tabs, 2 Refill(s) Start Date: 08/04/15 Status: Ordered Aspirin Low Dose 81 mg, Oral, Daily, 0 Refill(s) Start Date: 09/09/14 Status: Ordered bumetanide 1 mg oral tablet 1 mg 1 tabs, Oral, Daily, # 90 tabs, 2 Refill(s) Start Date: 08/04/15 Status: Ordered Calcium 600+D 1 tabs, Oral, Daily, 0 Refill(s) Start Date: 09/09/14 Status: Ordered clobetasol 0.05% topical ointment 1 austin, Topical, BID, 0 Refill(s) Start Date: 09/04/14 Status: Ordered Flomax 0.4 mg oral capsule 0.4 mg 1 caps, Oral, Daily, # 90 caps, 2 Refill(s) Start Date: 08/04/15 Status: Ordered glucosamine 1,000 mg, Oral, Daily, 0 Refill(s) Start Date: 09/09/14 Status: Ordered Klor-Con 10 oral tablet, extended release 10 mEq 1 tabs, Oral, Daily, # 90 tabs, 2 Refill(s) Start Date: 08/04/15 Status: Ordered metoprolol succinate 100 mg oral tablet, extended release 50 mg 0.5 tabs, Oral, Daily, # 90 tabs, 3 Refill(s) Start Date: 03/15/15 Status: Ordered Nasacort AQ 55 mcg/inh nasal spray 2 sprays, Nasal, BID, # 6 Each, 3 Refill(s) Start Date: 03/15/15 Status: Ordered Physical Therapy Physical Therapy, See Instructions, Eval and treat as indicated for achilles tendonitis., # 1 Each, 0 Refill(s) Start Date: 09/08/15 Status: Ordered Proscar 5 mg oral tablet See Instructions, Take 1 tablet by mouth daily, # 90 tabs, eRx: [facility], Take 1 tablet by mouth daily Start Date: 07/19/15 Status: Ordered Ventolin HFA 90 mcg/inh inhalation aerosol 180 mcg 2 puffs, Inhalation, QID, # 3 Each, 3 Refill(s) Start Date: 03/15/15 Status: Ordered ZyrTEC 10 mg, Oral, Daily, 0 Refill(s) Start Date: 09/09/14 Status: Ordered Results No data available for this section Immunizations Vaccine Date Refusal Reason tetanus/diphth/pertuss (Tdap) adult/adol 05/29/06 influenza virus vaccine, inactivated 06/16/15 influenza virus vaccine, inactivated 06/25/07 pneumococcal 23-polyvalent vaccine 07/04/05 zoster vaccine live 01/08/09 Procedures Procedure Date Related Diagnosis Body Site Transesophageal echocardiogram 06/28/15 Cataract of left eye 2009 Nasal Septum Repair 06/15/09 Sinus Surgery 06/15/09 Colonoscopy1 2006 Knee replacement-l 2004 Meniscus Repair 2002 Repair broken knee cap 1946 Cataract of right eye 1cscope wnl, pr hx colon polyps, repeat 5 years. 1998 cscope x3 polyps repeat 5 years;history of polyps repeat 2016 Social History Social History Type Response Smoking Status Former smoker; Type: Cigarettes Assessment and Plan Extracted from: Title: Office Visit Note Author: Calixto Jennings MD Date: 03/15/15 Assessment/Plan COPD (chronic obstructive pulmonary disease) Essential hypertension (disorder) Gout (disorder) High cholesterol Prostatism Plan: I am adding hydrochlorothiazide for your edema and slightly elevated blood pressure. Continue all other current medications. Follow-up in 6 months. At this time we discussed also holding Aleve been taking Tylenol to see if that would be sufficient for your thumb pain. Orders: albuterol, 180 mcg 2 puffs, Inhalation, QID, # 3 Each, 3 Refill(s) hydrochlorothiazide, 12.5 mg 1 tabs, Oral, Daily, # 90 tabs, 0 Refill(s), Pharmacy: [facility], 1 tabs Oral Daily metoprolol, 100 mg 1 tabs, Oral, Daily, # 90 tabs, 3 Refill(s) tamsulosin, 0.4 mg 1 caps, Oral, Daily, # 90 caps, 3 Refill(s) triamcinolone nasal, 2 sprays, Nasal, BID, # 6 Each, 3 Refill(s)
--- OUTSIDE RECORDS SUMMARY | 2016-11-27 08:23 | XMS REPORT | Referral Summary ---
Author Author [facility] Organization [facility] Address Unknown Phone Unavailable Care Team Providers Care Medical Assistant Ob Gyn Name Role Phone Brooke Clark Primary Care Physician [phone] Encounter VC Date(s): 11/18/15 - 11/18/15 [facility], [address] [place] [address] Discharge Disposition: 01-Home or Self Care Attending Physician: Owen Clark MD Admitting Physician: Owen Clark MD Vital Signs Most recent to 1 oldest [Reference Range]: Temperature Tympanic 36.2 degC [36.6-38.1 degC] *LOW* (11/18/15 8:04 AM) Blood Pressure 160/71 mmHg [90-140/60-90 mmHg] *HI* (11/18/15 8:04 AM) Problem List Condition Effective Dates Status [...] tablet by mouth daily, # 90 tabs, 1 Refill(s), Take 1 tablet by mouth daily Start Date: 11/18/15 Status: Ordered Ventolin HFA 90 mcg/inh inhalation [...] Septum Repair 06/15/09 Sinus Surgery 06/15/09 Colonoscopy1 2005 Knee replacement-l 2005 Meniscus Repair 2002 Repair broken knee cap 1946 Cataract of right eye 1cscope wnl, pr hx colon polyps, repeat 5 years. 1998 cscope x3 polyps repeat 5 years;history of polyps repeat 2016 Social History Social History Type Response Smoking Status Former smoker; Type: Cigarettes Assessment and Plan Extracted from: Title: Ambulatory Patient Education Author: Owen Clark MD Date: Family Medicine Asthma Asthma is a recurring condition in which the airways tighten and narrow. Asthma can make it difficult to breathe. It can cause coughing, wheezing, and shortness of breath. Asthma episodes, also called asthma attacks, range from minor to life-threatening. Asthma cannot be cured, but medicines and lifestyle changes can help control it. CAUSES Asthma is believed to be caused by inherited (genetic) and environmental factors , but its exact cause is unknown. Asthma may be triggered by allergens, lung infections, or irritants in the air. Asthma triggers are different for each person. Common triggers include: Animal dander. Dust mites. Cockroaches. Pollen from trees or grass. Mold. Smoke. Air pollutants such as dust, household phd intern, hair sprays, aerosol sprays, paint fumes, strong chemicals, or strong odors. Cold air, weather changes, and winds (which increase molds and pollens in the air). Strong emotional expressions such as crying or laughing hard. Stress. Certain medicines (such as aspirin) or types of drugs (such as beta- blockers). Sulfites in foods and drinks. Foods and drinks that may contain sulfites include dried fruit, potato chips, and sparkling grape juice. Infections or inflammatory conditions such as the flu, a cold, or an inflammation of the nasal membranes (rhinitis). Gastroesophageal reflux disease (GERD). Exercise or strenuous activity. SYMPTOMS Symptoms may occur immediately after asthma is triggered or many hours later. Symptoms include: Wheezing. Excessive nighttime or greens or grounds superintendent coughing. Frequent or severe coughing with a common cold. Chest tightness. Shortness of breath. DIAGNOSIS The diagnosis of asthma is made by a review of your medical history and a physical exam. Tests may also be performed. These may include: Lung function studies. These tests show how much air you breathe in and out. Allergy tests. Imaging tests such as X-rays. TREATMENT Asthma cannot be cured, but it can usually be controlled. Treatment involves identifying and avoiding your asthma triggers. It also involves medicines. There are 2 classes of medicine used for asthma treatment: Controller medicines. These prevent asthma symptoms from occurring. They are usually taken every day. Reliever or rescue medicines. These quickly relieve asthma symptoms. They are used as needed and provide short-term relief. Your health care provider will help you create an asthma action plan. An asthma action plan is a written plan for managing and treating your asthma attacks. It includes a list of your asthma triggers and how they may be avoided. It also includes information on when medicines should be taken and when their dosage should be changed. An action plan may also involve the use of a device called a peak flow meter. A peak flow meter measures how well the lungs are working. It helps you monitor your condition. HOME CARE INSTRUCTIONS Take medicines only as directed by your health care provider. Speak with your health care provider if you have questions about how or when to take the medicines. Use a peak flow meter as directed by your health care provider. Record and keep track of readings. Understand and use the action plan to help minimize or stop an asthma attack without needing to seek medical care. Control your home environment in the following ways to help prevent asthma attacks: Do not smoke. Avoid being exposed to secondhand smoke. Change your heating and air conditioning filter regularly. Limit your use of fireplaces and wood stoves. Get rid of pests (such as roaches and mice) and their droppings. Throw away plants if you see mold on them. Clean your floors and dust regularly. Use unscented cleaning products. Try to have someone else vacuum for you regularly. Stay out of rooms while they are being vacuumed and for a short while afterward. If you vacuum, use a dust mask from a hardware store, a double-layered or microfilter vacuum spinning frame cleaner bag, or a vacuum spinning frame cleaner with a HEPA filter. Replace carpet with wood, tile, or vinyl uriah. Carpet can trap dander and dust. Use allergy-proof pillows, mattress covers, and box spring covers. Wash bed sheets and blankets every week in hot water and dry them in a dryer. Use blankets that are made of polyester or cotton. Clean bathrooms and joy with bleach. If possible, have someone repaint the eng in these rooms with mold-resistant paint. Keep out of the rooms that are being cleaned and painted. Wash hands frequently. SEEK MEDICAL CARE IF: You have wheezing, shortness of breath, or a cough even if taking medicine to prevent attacks. The colored mucus you cough up (sputum) is thicker than usual. Your sputum changes from clear or white to yellow, green, gallagher, or bloody. You have any problems that may be related to the medicines you are taking (such as a rash, itching, swelling, or trouble breathing). You are using a reliever medicine more than 23 times per week. Your peak flow is still at 5079% of your personal best after following your action plan for 1 hour. You have a fever. SEEK IMMEDIATE MEDICAL CARE IF: You seem to be getting worse and are unresponsive to treatment during an asthma attack. You are short of breath even at rest. You get short of breath when doing very little physical activity. You have difficulty eating, drinking, or talking due to asthma symptoms. You develop chest pain. You develop a fast heartbeat. You have a bluish color to your lips or fingernails. You are light-headed, dizzy, or faint. Your peak flow is less than 50% of your personal best. MAKE SURE YOU: Understand these instructions. Will watch your condition. Will get help right away if you are not doing well or get worse. This information is not intended to replace advice given to you by your health care provider. Make sure you discuss any questions you have with your health care provider. Document Released: 08/20/2006 Document Revised: 01/04/2015 Document Reviewed: ExitCare Patient Information 2015 [employer]. No follow up information was provided. Extracted from: Title: Office Visit Note Author: Owen Clark MD Date: 11/18/15
--- OUTSIDE RECORDS SUMMARY | 2016-11-27 08:23 | XMS REPORT | Referral Summary ---
Author Author [facility] Organization [facility] Address Unknown Phone Unavailable Care Team Providers Care Child Care Lead Teacher Name Role Phone Brooke Clark Primary Care Physician [phone] Encounter VC Date(s): 09/08/15 - 09/08/15 [facility], Family [address] [place] [address]- Discharge Disposition: 01-Home or Self Care Attending Physician: Owen Clark MD Admitting Physician: Owen Clark MD Vital Signs Most recent to 1 oldest [Reference Range]: Blood Pressure 140/70 mmHg [90-140/60-90 mmHg] (09/08/15 2:52 PM) Problem List Condition Effective Dates Status [...] polyps repeat 5 years;history of polyps repeat 2017 Social History Social History Type Response Smoking Status Former smoker; Type: Cigarettes Assessment and Plan Extracted from: Title: Ambulatory Patient Education Author: Owen Clark MD Date: 09/08/15 Musculoskeletal Bursitis Bursitis is a swelling and soreness (inflammation) of a fluid-filled sac (bursa ) that overlies and protects a joint. It can be caused by injury, overuse of the joint, arthritis or infection. The joints most likely to be affected are the elbows, shoulders, hips and knees. HOME CARE INSTRUCTIONS Apply ice to the affected area for 15-20 minutes each hour while awake for 2 days. Put the ice in a plastic bag and place a towel between the bag of ice and your skin. Rest the injured joint as much as possible, but continue to put the joint through a full range of motion, 4 times per day. (The shoulder joint especially becomes rapidly "frozen" if not used.) When the pain lessens, begin normal slow movements and usual activities. Only take [id number] or prescription medicines for pain, discomfort or fever as directed by your caregiver. Your caregiver may recommend draining the bursa and injecting medicine into the bursa. This may help the healing process. Follow all instructions for follow-up with your caregiver. This includes any orthopedic referrals, physical therapy and rehabilitation. Any delay in obtaining necessary care could result in a delay or failure of the bursitis to heal and chronic pain. SEEK IMMEDIATE MEDICAL CARE IF: Your pain increases even during treatment. You develop an oral temperature above 102 F (38.9 C) and have heat and inflammation over the involved bursa. MAKE SURE YOU: Understand these instructions. Will watch your condition. Will get help right away if you are not doing well or get worse. Document Released: 08/17/2001 Document Revised: 11/11/2012 Document Reviewed: ExitCare Patient Information 2015 [email or web address]. This information is not intended to replace advice given to you by your health care provider. Make sure you discuss any questions you have with your health care provider. No follow up information was provided. Extracted from: Title: Office Visit Note Author: Owen Clark MD Date: 09/08/15 Assessment/Plan COPD (chronic obstructive pulmonary disease) This issue was reviewed, appears stable, and current therapy continued except as mentioned. Appropriate lab was reviewed from the most recent appropriate entry and lab was ordered if needed in the cpoe/nursing orders, and follow up recommended generally in 90 days and no later then six months. Gout (disorder) This issue was reviewed, appears stable, and current therapy continued except as mentioned. Appropriate lab was reviewed from the most recent appropriate entry and lab was ordered if needed in the cpoe/nursing orders, and follow up recommended generally in 90 days and no later then six months. Lab reviewed. HTN (hypertension) This issue was reviewed, appears stable, and [...] been no chest pain, chest pressure, soa/manrique. Hyperlipidemia This issue was reviewed, appears stable, and current therapy continued except as mentioned. Appropriate lab was reviewed from the most recent appropriate entry and lab was ordered if needed in the cpoe/nursing orders, and follow up recommended generally in 90 days and no later then six months. Lab reviewed. Osteoarthritis This issue was reviewed, appears stable, and current therapy continued except as mentioned. Appropriate lab was reviewed from the most recent appropriate entry and lab was ordered if needed in the cpoe/nursing orders, and follow up recommended generally in 90 days and no later then six months. Tendonitis, Achilles, right Hand outs given. Podiatry discussed and declined. PT script given. Xray and venous doppler discussed to check for dvt and that was declined due to lack ofcalf pain and lack of swelling. Orders: Misc Medication, Physical Therapy, See Instructions, Eval and treat as indicated for achilles tendonitis., # 1 Each, 0 Refill(s)
--- OUTSIDE RECORDS SUMMARY | 2016-11-27 08:23 | XMS REPORT | Continuity Of Care Document ---
Author Author [facility] Organization [facility] Address [address] [place] [address] Phone Care Team Providers Care Nursing Informatics Analyst Name Role Phone FARNAZ LORENZANA, CHAD AT DAY LOERNZANA, S Unavailable Results Lab Results Visit/Account #[id number] (January 29, 2016 2:10pm - January 29, 2016 3:48pm) Test Result Date/Time 30930-5: COMPLETE BLOOD COUNT WITH DIFF WHITE BLOOD COUNT(4.0-11.0 10E3/UL) 10.9 10E3/UL January 29, 2016 2:09pm RED BLOOD COUNT(4.50-5.90 10E6/UL) 4.82 10E6/UL January 29, 2016 2:09pm HEMOGLOBIN(13.5-17.5 G/DL) 14.5 G/DL January 29, 2016 2:09pm HEMATOCRIT(41.0-53.0 %) 43.2 % January 29, 2016 2:09pm MEAN CORPUSCULAR VOLUME(82.0-100.0 FL) 89.6 FL January 29, 2016 2:09pm 79519-1: MEAN CORPUSCULAR HEMOGLOBIN(26.0-34.0 PG) 30.1 PG January 29, 2016 2:09pm MEAN CORPUSCULAR HGB CONC(31.5-36.5 G/DL) 33.6 G/DL January 29, 2016 2:09pm RED CELL DISTRIBUTION WIDTH(11.5-14.5 %) 12.7 % January 29, 2016 2:09pm 777-3: PLATELET COUNT(150-450 10E3/UL) 250 10E3/UL January 29, 2016 2:09pm MEAN PLATELET VOLUME(8.2-12.4 FL) 10.7 FL January 29, 2016 2:09pm 770-8: NEUTROPHILS % (AUTO)(40-70 %) 66 % January 29, 2016 2:09pm LYMPHOCYTES % (AUTO)(15-45 %) 22 % January 29, 2016 2:09pm 5905-5: MONOCYTES % (AUTO)(2-10 %) 9 % January 29, 2016 2:09pm 713-8: EOSINOPHILS % (AUTO)(0-6 %) 3 % January 29, 2016 2:09pm 706-2: BASOPHILS % (AUTO)(0-1 %) 1 % January 29, 2016 2:09pm 85865-1: IMMATURE GRANS % (AUTO)(0-0 %) 0 % January 29, 2016 2:09pm NUCLEATED RBCS (AUTO)(0-0 %) 0 % January 29, 2016 2:09pm 751-8: NEUTROPHILS # (AUTO)(2.5-7.5 10E3/UL) 7.2 10E3/UL January 29, 2016 2:09pm 44709-3: LYMPHOCYTES # (AUTO)(1.0-4.0 10E3/UL) 2.4 10E3/UL January 29, 2016 2:09pm 742-7: MONOCYTES # (AUTO)(0.2-0.8 10E3/UL) 0.9 10E3/UL January 29, 2016 2:09pm 711-2: EOSINOPHILS # (AUTO)(0.0-0.4 10E3/UL) 0.3 10E3/UL January 29, 2016 2:09pm 704-7: BASOPHILS # (AUTO)(0.0-0.2 10E3/UL) 0.1 10E3/UL January 29, 2016 2:09pm IMMATURE GRANS # (AUTO)(0.0-0.0 10E3/UL) 0.0 10E3/UL January 29, 2016 2:09pm DIFF TYPE AUTOMATED January 29, 2016 2:09pm 70112-6: PROTHROMBIN TIME WITH INR PROTHROMBIN TIME(12.1-14.0 SEC) 12.3 SEC January 29, 2016 2:09pm 43131-9: INR 0.95 Result Comments: INR reference interval applies to patients on anticoagulant therapy. Suggested INR therapeutic range for oral anticoagulant therapy: (Stabilized anticoagulated patients) Routine Therapy: 2.0 to 3.0 Recurrent Myocardial Infarction: 2.5 to 3.5 Mechanical Prosthetic Valves: 2.5 to 3.5 January 29, 2016 2:09pm PARTIAL THROMBOPLASTIN TIME PARTIAL THROMBOPLASTIN TIME(22.2-37.4 SEC) 27.2 SEC January 29, 2016 2:09pm 07698-5: COMPLETE METABOLIC PROFILE GLUCOSE(70-110 MG/DL) 93 MG/DL January 29, 2016 2:09pm BLOOD UREA NITROGEN(6-20 MG/DL) 23 MG/DL January 29, 2016 2:09pm CREATININE(0.50-1.20 MG/DL) 1.17 MG/DL January 29, 2016 2:09pm 51485-6: EST GLOMERULAR FILTRATION RATE(Greater than or equal to 60) Greater than or equal to 60 Result Comments: If the patient is of -[place]ov[place] descent/extraction multiply the eGFR value by 1.212 to obtain the actual eGFR. >=60 mg/dL Normal 30-59 mg/dL Moderate Kidney Disease 15-29 mg/dL Severe Kidney Disease <15 mg/dL Kidney Failure If the patient is of -[place] descent/extraction multiply the eGFR value by 1.212 to obtain the actual eGFR. >=60 mg/dL Normal 30-59 mg/dL Moderate Kidney Disease 15-29 mg/dL Severe Kidney Disease <15 mg/dL Kidney Failure January 29, 2016 2:09pm BUN CREATININE RATIO(10.0-20.0 RATIO) 20.0 RATIO January 29, 2016 2:09pm SODIUM(135-145 MMOL/L) 135 MMOL/L January 29, 2016 2:09pm POTASSIUM(3.6-5.0 MMOL/L) 4.1 MMOL/L January 29, 2016 2:09pm CHLORIDE(101-111 MMOL/L) 101 MMOL/L January 29, 2016 2:09pm 9: CO2(21-31 MMOL/L) 26 MMOL/L January 29, 2016 2:09pm ANION GAP(8-18) 12 January 29, 2016 2:09pm OSMO CALCULATED(270.0-290.0) 273.5 January 29, 2016 2:09pm CALCIUM(8.5-10.5 MG/DL) 8.4 MG/DL January 29, 2016 2:09pm BILIRUBIN,TOTAL(0.1-1.2 MG/DL) 1.0 MG/DL January 29, 2016 2:09pm ALKALINE PHOSPHATASE(42-121 IU/L) 118 IU/L January 29, 2016 2:09pm ASPARTATE AMINO TRANSFERASE(10-42 IU/L) 21 IU/L January 29, 2016 2:09pm ALANINE AMINOTRANSFERASE(10-60 IU/L) 21 IU/L January 29, 2016 2:09pm TOTAL PROTEIN(6.4-8.2 G/DL) 6.9 G/DL January 29, 2016 2:09pm ALBUMIN(3.5-5.5 G/DL) 4.1 G/DL January 29, 2016 2:09pm GLOBULIN(2.4-3.6) 2.8 January 29, 2016 2:09pm ALBUMIN/GLOBULIN RATIO(0.9-1.8 RATIO) 1.5 RATIO January 29, 2016 2:09pm 13752-7: MAGNESIUM 21262-8: MAGNESIUM(1.8-2.5 MG/DL) 2.1 MG/DL January 29, 2016 2:09pm 27408-1: CARDIAC TROPONIN I 33033-0: CARDIAC TROPONIN I(0.01-0.04 NG/ML) 0.01 NG/ML Result Comments: REFERENCE RANGES: NEGATIVE < 0.04 NG/ML POSSIBLE MYCARDIAL INVOLVEMENT >/=0.04 NG/ML INTERPRET TROPONIN I RESULT IN LIGHT OF THE TOTAL CLINICAL PRESENTATION INCLUDING CLINICAL HISTORY. ANY CONDITION RESULTING IN MYOCARDIAL INJURY CAN POTENTIALLY ELEVATE TROPONIN I LEVELS ABOVE EXPECTED NORMAL RANGES. NOTE NEW REFERENCE RANGE January 29, 2016 2:09pm Allergies and Adverse Reactions Allergies and Adverse Reactions Patient Unit Number: [id number] Agent Type Reaction Severity Status NO KNOWN ALLERGIES Drug Allergy Unknown Unknown Active Problem List Problem List Visit/Account #[id number] (January 29, 2016 2:10pm - January 29, 2016 3:48pm) Acute Problems: Code/Condition Comments Documented Start Date Documented Resolved Date Code (s) Atrial fibrillation ICD10: I48.91 Atrial fibrillation ICD9: 427.31 Atrial fibrillation SNOMED: 00305034 Atrial fibrillation Plan of Care Plan Of Care Visit/Account #[id number] (January 29, 2016 2:10pm - January 29, 2016 3:48pm) Patient Instructions Return if worse or any concern. Follow-up with your PCP or Umbrella Frame Maker early next week for further evaluation and care. Vital Signs Vital Signs Visit/Account #[id number] (January 29, 2016 2:10pm - January 29, 2016 3:48pm) Sign First Result Last Result Code(s) Temperature in Fahrenheit Temperature (Fahrenheit): 98.1 [degF] On January 29, 2016 2:06pm Temperature (Fahrenheit): 97.9 [degF] On January 29, 2016 3:44pm 8310-5 Body Temperature Weight in Kilograms Weight (Kilograms): 97.73 kg On January 29, 2016 2:06pm 3141-9 Weight Measured 64255-5 Body weight measured in kilograms Functional Status Functional and Cognitive Status No Functional Status Data Medications Home Medications - Medications that the patient was taking prior to arrival at the hospital Visit/Account #[id number] (January 29, 2016 2:10pm - January 29, 2016 3:48pm) Medication Route Sig/Schedule Precondition/Indication Comments/Instructions Codes FLOMAX(TAMSULOSIN HCL) 0.4 MG CAP Dose: 0.4 MG ORAL DAILY Tamsulosin hydrochloride 0.4 MG Oral Capsule [Flomax] (RxNorm): 403367 FLOMAX (TAMSULOSIN HCL) NDC: 79680845352 TOPROL XL(METOPROLOL SUCCINATE) 100 MG TAB Dose: 100 MG ORAL DAILY 24 HR metoprolol succinate 100 MG Extended Release Oral Tablet [Toprol] ( RxNorm): 270914 TOPROL XL (METOPROLOL SUCCINATE) NDC: 12179026881 ZYLOPRIM(ALLOPURINOL) 300 MG TABLET Dose: 300 MG ORAL DAILY Allopurinol 300 MG Oral Tablet [Zyloprim] (RxNorm): 633063 ZYLOPRIM (ALLOPURINOL) NDC: 32407905727 MICRO-K(POTASSIUM CHLORIDE) 10 MEQ TABLET.ER Dose: 10 MEQ ORAL DAILY Potassium Chloride 10 MEQ Extended Release Oral Tablet [K-Tab] (RxNorm): 969584 MICRO-K (POTASSIUM CHLORIDE) NDC: 34047408829 BUMEX(BUMETANIDE) 1 MG TAB Dose: 1 MG ORAL DAILY Bumetanide 1 MG Oral Tablet (RxNorm): 948862 BUMEX (BUMETANIDE) NDC: 97093598552 PROAIR HFA(ALBUTEROL SULF) 8.5 GM PUFF Dose: 1 PUFF INHALED NEEDED SHORTNESS OF BREATH 200 ACTUAT Albuterol 0.09 MG/ACTUAT Metered Dose Inhaler [Proventil] (RxNorm) : 282253 PROAIR HFA (ALBUTEROL SULF) NDC: 79763250972 PROSCAR(FINASTERIDE) 5 MG TABLET Dose: 5 MG ORAL DAILY Finasteride 5 MG Oral Tablet [Proscar] (RxNorm): 455008 PROSCAR (FINASTERIDE) NDC: 74500762743 ASPIRIN CHEW(ASPIRIN) 81 MG TAB.CHEW Dose: 81 MG ORAL DAILY Aspirin 81 MG Chewable Tablet (RxNorm): 260051 ASPIRIN CHEW (ASPIRIN) NDC: 01147820071 ALEVE(NAPROXEN) 220 MG TABLET Dose: 220 MG ORAL AT BEDTIME PAIN OR FEVER Naproxen sodium 220 MG Oral Tablet [Aleve] (RxNorm): 123919 ALEVE (NAPROXEN) NDC: 51358091833 TYLENOL(ACETAMINOPHEN) 325 MG TAB Dose: 1300 MG ORAL DAILY PAIN OR FEVER Rx Instructions: 325-650MG Acetaminophen 325 MG Oral Tablet (RxNorm): 229620 TYLENOL (ACETAMINOPHEN) NDC: 45909839646 GLUCOSAMINE SULFATE(GLUCOSAMINE SULFATE) 500 MG CAPSULE Dose: 1000 MG ORAL DAILY GLUCOSAMINE SULFATE (GLUCOSAMINE SULFATE) NDC: 30783712838 CITRACAL D 315-200 Tab(CALCIUM CITRATE/VITAMIN D3) 1 EACH TABLET Dose: 600 MG ORAL DAILY AT [facility] CITRACAL D 315-200 Tab (CALCIUM CITRATE/VITAMIN D3) NDC: 43997947351 ZYRTEC(CETIRIZINE HCL) 10 MG TABLET Dose: 10 MG ORAL DAILY cetirizine hydrochloride 10 MG Oral Tablet (RxNorm): 0391859 ZYRTEC (CETIRIZINE HCL) NDC: 58186298120 Nasacort(TRIAMCINOLONE ACETONIDE) 10.8 ML SPRAY Dose: 2 SPR IN NASAL DAILY Nasacort (TRIAMCINOLONE ACETONIDE) NDC: 46630732371 Inpatient/Ordered Medications - Medications administered during hospital visit Visit/Account #[id number] (January 29, 2016 2:10pm - January 29, 2016 3:48pm) Medication Route Sig/Schedule Precondition/Indication Comments/Instructions Codes ASPIRIN 324 MG TAB Dose: 324 MG ORAL NOW Label Comments: Chewed if no intolerance to aspirin and not aspirin taken today Aspirin 81 MG Chewable Tablet (RxNorm): 154356 (ASPIRIN) NDC: 43580130386 IV Medication Carriers: NORMAL SALINE(SODIUM CHLORIDE) 1000 ML INJECTION Dose: 1000 ML INTRAVEN .Q1H (Rate: 1000 MLS/HR Duration: 1 HR) Carriers: Sodium Chloride 0.154 MEQ/ML Injectable Solution (RxNorm): 506386 NORMAL SALINE (SODIUM CHLORIDE) NDC: 37089440614 CARDIZEM INJ(DILTIAZEM HCL) 25 MG/5 ML INJECTION Dose: 4.8 ML INTRAVEN NOW Label Comments: MAY INCREASE FALL RISK Diltiazem Hydrochloride 5 MG/ML Injectable Solution (RxNorm): 720766 CARDIZEM INJ (DILTIAZEM HCL) NDC: 71335894269 Discharge Medications - Medications that patient should continue to take. Review with physician Visit/Account #[id number] (January 29, 2016 2:10pm - January 29, 2016 3:48pm) Medication Route Sig/Schedule Precondition/Indication Comments/Instructions Codes ELIQUIS(APIXABAN) 5 MG TABLET Dose: 5 MG ORAL TWICE A DAY apixaban 5 MG Oral Tablet [Eliquis] (RxNorm): 6495697 ELIQUIS (APIXABAN) NDC: 35499776632 CARDIZEM CD(DILTIAZEM HCL) 120 MG CAP.ER.24H Dose: 120 MG ORAL DAILY 24 HR Diltiazem Hydrochloride 120 MG Extended Release Oral Capsule (RxNorm): 953432 CARDIZEM CD (DILTIAZEM HCL) NDC: 70650132432 History Of Encounters Encounters Visit/Account #[id number] (January 29, 2016 2:10pm - January 29, 2016 3:48pm) Account Status Physican Of Record Reason For Visit Visit Diagnosis Start Date/Time Stop Date/Time ER CHAD OSIE MD A-FIB/CHEST TIGHTNESS R07.89: OTHER CHEST PAIN ICD10 January 29, 2016 2:10pm January 29, 2016 3:48pm History of Procedures Procedure List No procedures recorded. Discharge Instructions Discharge Instructions Visit/Account #[id number] (January 29, 2016 2:10pm - January 29, 2016 3:48pm) DISCHARGE INSTRUCTIONS Physician Documentation Social History Social History No Social History Data. Immunizations Immunizations Patient Unit Number: [id number] Immunizations No immunizations recorded.
--- OUTSIDE RECORDS SUMMARY | 2016-11-27 08:23 | XMS REPORT | Continuity of Care Document ---
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 - *Chronic Hypertension, Unspecified - Chronic Hypercholesterolemia - Chronic Gout, unspecified - Chronic Allergic rhinitis, cause unspecified - Chronic HYPERPLASIA OF PROSTATE, UNSPECIFIED, 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 - Chronic COPD - *Chronic VARICELLA UNCOMPLICATED - PURE HYPERCHOLESTEROLEM - GOUT NOS - OVERWEIGHT - CATARACT NOS - HYPERTENSION NOS - ANGINA PECTORIS NEC/NOS - BPH NOS W/O UR OBS/LUTS - OSTEOARTHROS NOS-UNSPEC - Hypercholesterolemia - *Chronic Gout, unspecified - *Chronic Hypercholesterolemia - Chronic Gout, unspecified - Chronic HYPERPLASIA OF PROSTATE, UNSPECIFIED, 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 - *Chronic HYPERPLASIA OF PROSTATE, UNSPECIFIED, 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 - Chronic Hypertension, Unspecified - *Chronic Hypercholesterolemia - *Chronic Hypertension, Unspecified - Chronic Hypertension, Unspecified - *Chronic Hypertension, Unspecified - Chronic HYPERPLASIA OF PROSTATE, UNSPECIFIED, 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 - *Chronic Gout - *Chronic Allergic rhinitis, cause unspecified - *Chronic Routine Medical Exam - *Controlled Hypertension, Unspecified - *Chronic Hypercholesterolemia - *Chronic Family History Family Member Diagnosis Age At Onset Status Sister (Unknown) Hypertension Yes Sister (Unknown) Diabetes Yes Brother (Unknown) Cancer Yes Mother (Unknown) Diabetes Yes Social History Social History Element Description Quantity Unknown Allergies, Adverse Reactions, Alerts Substance Reaction Severity Status Unknown Medications Medication Instructions Dosage Effective Dates (start - stop) Status Nasacort AQ 55 mcg nasal spray aerosol 2 sprays bid each nostril 2013 - Active allopurinol 300 mg tablet Take 1 tablet by mouth every day. - Active Flomax 0.4 mg capsule Take 1 capsule by mouth. - Active Toprol XL 50 mg tablet,extended release Take 1 tablet by mouth every morning. - No Longer Active allopurinol 300 mg tablet Take 1 tablet by mouth every day. - No Longer Active Flomax 0.4 mg capsule Take 1 capsule by mouth. - No Longer Active clobetasol 0.05 % topical ointment Apply TOP twice a day. - Active Ventolin HFA 90 mcg/actuation aerosol inhaler inhale 2 puff by inhalation route every 4 - 6 hours as needed 0 - Active Tricor 145 mg tablet Take 1 tablet by mouth every day. - Active Aleve 220 mg tablet take 1 tablet (220MG) by oral route every 12 hours as needed 220 MG - Active Toprol XL 50 mg tablet,extended release Take 1 tablet by mouth every morning. - Active lisinopril 10 mg-hydrochlorothiazide 12.5 mg tablet take 1 tablet by oral route every day 0 - Active Immunizations Vaccine Date Status Comments Unknown Results Test Name Date and Time Measure Units Reference Range Abnormal Flag Comments Unknown Vital Signs Date / Time: Height Weight Pulse Rate Blood Pressure Temperature /07:53:00 70.50 in 219.00 lbs 78 /min 140/80 mm[Hg] 97.4 F Procedures Procedure Date Unknown Encounters Encounter Location Date Patient Visit [facility] Patient Visit Conversion Patient Visit [facility] Patient Visit [facility] Patient Visit [facility] Patient Visit [facility] Patient Visit [facility] Patient Visit [facility] Advance Directives Directive Effective Date Unknown
--- OUTSIDE RECORDS SUMMARY | 2016-11-27 08:23 | XMS REPORT | Referral Summary ---
Author Author [facility] Organization [facility] Address Unknown Phone Unavailable Care Team Providers Care Mat Worker Name Role Phone Brooke Clark Primary Care Physician [phone] Encounter VC Date(s): 01/10/16 - 01/10/16 [facility] [address] [place] [address] Discharge Diagnosis: Foot pain, right Discharge Disposition: 01-Home or Self Care Attending Physician: Guillermina Menendez PA-C Admitting Physician: Guillermina Menendez PA-C Vital Signs Most recent to 1 oldest [Reference Range]: Peripheral Pulse 72 bpm Rate [60-100 bpm] (01/10/16 2:00 PM) Respiratory Rate 18 br/min [14-20 br/min] (01/10/16 2:00 PM) Blood Pressure 150/64 mmHg [90-140/60-90 mmHg] *HI* (01/10/16 2:00 PM) Problem List Condition Effective Dates Status [...] Extracted from: Title: Ambulatory Patient Education Author: Guillermina Menendez PA-C Date : 01/10/16 Family Medicine Musculoskeletal Pain Musculoskeletal pain is muscle and jolly aches and pains. These pains can occur in any part of the body. Your caregiver may treat you without knowing the cause of the pain. They may treat you if blood or urine tests, X-rays, and other tests were normal. CAUSES There is often not a definite cause or reason for these pains. These pains may be caused by a type of germ (virus). The discomfort may also come from overuse. Overuse includes working out too hard when your body is not fit. Jolly aches also come from weather changes. Bone is sensitive to atmospheric pressure changes. HOME CARE INSTRUCTIONS Ask when your test results will be ready. Make sure you get your test results. Only take nlva-nuk-webwgla or prescription medicines for pain, discomfort , or fever as directed by your caregiver. If you were given medications for your condition, do not drive, operate machinery or power tools, or sign legal documents for 24 hours. Do not drink alcohol. Do not take sleeping pills or other medications that may interfere with treatment. Continue all activities unless the activities cause more pain. When the pain lessens, slowly resume normal activities. Gradually increase the intensity and duration of the activities or exercise. During periods of severe pain, bed rest may be helpful. Lay or sit in any position that is comfortable. Putting ice on the injured area. Put ice in a bag. Place a towel between your skin and the bag. Leave the ice on for 15 to 20 minutes, 3 to 4 times a day. Follow up with your caregiver for continued problems and no reason can be found for the pain. If the pain becomes worse or does not go away, it may be necessary to repeat tests or do additional testing. Your caregiver may need to look further for a possible cause. SEEK IMMEDIATE MEDICAL CARE IF: You have pain that is getting worse and is not relieved by medications. You develop chest pain that is associated with shortness or breath, sweating, feeling sick to your stomach (nauseous), or throw up (vomit). Your pain becomes localized to the abdomen. You develop any new symptoms that seem different or that concern you. MAKE SURE YOU: Understand these instructions. Will watch your condition. Will get help right away if you are not doing well or get worse. This information is not intended to replace advice given to you by your health care provider. Make sure you discuss any questions you have with your health care provider. Document Released: 08/20/2006 Document Revised: 11/11/2012 Document Reviewed: [employer] Patient Information 2015 [email or web address]. No follow up information was provided. Extracted from: Title: Office Visit Note- R foot Author: Guillermina Menendez PA-C Date: pain Assessment/Plan Foot pain, right, Foot pain, right X-ray taken of the R foot today, and I did not see any fractures. I think this could just be a sprain, or could be a very subtle stress fracture. Pt advised to continue to ice, elevate, and pain relief. Pt was placed in walking boot today, and reported relief of his pain. Will also try a Medrol Dosepak to help with inflammation. Pt is to RTC in a couple weeks if not improving. Could get MRI to assess further. Ordered: Office Visit Level 3 Est 18694 Walking boot, non-pneumatic, with or without joints, with or without interface L4386 XR Foot Complete Right
--- OUTSIDE RECORDS SUMMARY | 2016-11-27 08:23 | XMS REPORT | Referral Summary ---
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 Name Role Phone Brooke Clark Primary Care Physician [phone] Encounter VC Date(s): 08/04/15 - 08/04/15 [facility], [address] [place] [address]- Discharge Disposition: 01-Home or Self Care Attending Physician: Owen Clark MD Admitting Physician: Owen Clark MD Vital Signs Most recent to 1 oldest [Reference Range]: Temperature Tympanic 36.8 degC [36.6-38.1 degC] (08/04/15 3:08 PM) Peripheral Pulse 67 bpm Rate [60-100 bpm] (08/04/15 3:08 PM) Blood Pressure 160/70 mmHg [90-140/60-90 mmHg] *HI* (08/04/15 3:08 PM) SpO2 97 % (08/04/15 3:08 PM) Problem List Condition Effective Dates Status [...] 0 Refill(s) Start Date: 09/09/14 Status: Ordered hydrochlorothiazide 12.5 mg oral tablet See Instructions, Take 1 tablet by mouth daily, # 90 unknown unit, 1 Refill(s) , eRx: [facility], Take 1 tablet by mouth daily Start Date: 05/11/15 Status: Ordered Klor-Con 10 oral tablet, extended [...] 3 Refill(s) Start Date: 03/15/15 Status: Ordered Proscar 5 mg oral tablet [...] to 1 oldest [Reference Range]: WBC [4.8-10.8 10.6 10*3/uL 10*3/uL] (08/04/15 3:55 PM) RBC [4.60-6.20] 4.68 (08/04/15 3:55 PM) Hgb [14.0-18.0 14.6 gm/dL gm/dL] (08/04/15 3:55 PM) Hct [42.0-52.0 %] 42.4 % (08/04/15 3:55 PM) MCV [82.0-99.0 fL] 90.6 fL (08/04/15 3:55 PM) MCH [27.0-32.0 pg] 31.2 pg (08/04/15 3:55 PM) MCHC [32.0-36.0 34.4 gm/dL gm/dL] (08/04/15 3:55 PM) RDW [11.5-14.5 %] 13.0 % (08/04/15 3:55 PM) Platelet [150-400 271 10*3/uL 10*3/uL] (08/04/15 3:55 PM) MPV [8.8-14.8 fL] 11.2 fL (08/04/15 3:55 PM) Immature 0.3 % Granulocytes (08/04/15 3:55 PM) [0.0-1.0 %] Neutrophils [51-75 63 % %] (08/04/15 3:55 PM) Lymphocytes [20-46 23 % %] (08/04/15 3:55 PM) Monocytes [4-11 %] 11 % (08/04/15 3:55 PM) Eosinophils [0-4 %] 3 % (08/04/15 3:55 PM) Basophils [0-2 %] 0 % (08/04/15 3:55 PM) Neutro Absolute 6.62 10*3 [1.90-7.00 10*3] (08/04/15 3:55 PM) Lymph Absolute 2.40 10*3 [0.80-3.30 10*3] (08/04/15 3:55 PM) [place] Absolute 1.15 10*3 [0.30-1.00 10*3] *HI* (08/04/15 3:55 PM) Eos Absolute 0.32 10*3 [0.00-0.50 10*3] (08/04/15 3:55 PM) Baso Absolute 0.04 10*3 [0.00-0.20 10*3] (08/04/15 3:55 PM) Chemistry Most recent to 1 oldest [Reference Range]: Sodium Lvl [135-144 142 mEq/L mEq/L] (08/04/15 3:55 PM) Potassium Lvl 4.3 mEq/L [3.5-5.2 mEq/L] (08/04/15 3:55 PM) Chloride [99-111 103 mEq/L mEq/L] (08/04/15 3:55 PM) CO2 [23-31 mEq/L] 30 mEq/L (08/04/15 3:55 PM) AGAP [3-20] 9 (08/04/15 3:55 PM) BUN [8-26 mg/dL] 18 mg/dL (08/04/15 3:55 PM) Glucose Lvl [70-99 100 mg/dL mg/dL] *HI* (08/04/15 3:55 PM) Creatinine Lvl 1.09 mg/dL [0.72-1.25 mg/dL] (08/04/15 3:55 PM) eGFR [>60 mL/min] >60 mL/min 1 (08/04/15 3:55 PM) Calcium Lvl 9.2 mg/dL [8.9-10.5 mg/dL] (08/04/15 3:55 PM) Albumin Lvl [3.4-4.8 4.2 gm/dL gm/dL] (08/04/15 3:55 PM) Total Protein 6.6 gm/dL [6.2-8.1 gm/dL] (08/04/15 3:55 PM) Globulin [1.8-4.0 2.4 gm/dL gm/dL] (08/04/15 3:55 PM) ALT [0-55 U/L] 18 U/L (08/04/15 3:55 PM) AST [5-34 U/L] 24 U/L (08/04/15 3:55 PM) Alk Phos [40-150 138 U/L U/L] (08/04/15 3:55 PM) Bili Total [0.2-1.2 0.9 mg/dL mg/dL] (08/04/15 3:55 PM) Uric Acid [3.5-7.2 6.9 mg/dL mg/dL] (08/04/15 3:55 PM) 1Result Comment: Multiply eGFR results by 1.21 for race. Urinalysis Most recent to 1 oldest [Reference Range]: UA Color Yellow (08/04/15 4:08 PM) UA Appear Clear (08/04/15 4:08 PM) UA pH [5.0-8.0] 6.0 (08/04/15 4:08 PM) UA Leuk Est Negative [Negative] (08/04/15 4:08 PM) UA Nitrite Negative [Negative] (08/04/15 4:08 PM) UA Protein Negative [Negative] (08/04/15 4:08 PM) UA Glucose Negative [Negative] (08/04/15 4:08 PM) UA Ketones Negative [Negative] (08/04/15 4:08 PM) UA Urobilinogen 0.2 mg/dL [<1.0 mg/dL] (08/04/15 4:08 PM) UA Bili [Negative] Negative (08/04/15 4:08 PM) UA Blood [Negative] Negative (08/04/15 4:08 PM) UA Spec Grav 1.019 [1.003-1.030] (08/04/15 4:08 PM) Type Clean Catch (08/04/15 4:08 PM) Immunizations Vaccine Date Refusal Reason tetanus/diphth/pertuss (Tdap) [...] Smoke. Air pollutants such as dust, household audiovisual technician, hair sprays, aerosol sprays, paint fumes, strong [...] later. Symptoms include: Wheezing. Excessive nighttime or barkeeper coughing. Frequent or severe coughing with a [...] hardware store, a double-layered or microfilter vacuum ship cleaner bag, or a vacuum ship cleaner with a HEPA filter. Replace carpet [...] related to the medicines you are taking ( such as a rash, itching, swelling, or trouble [...] doing well or get worse. Document Released: 08/20/2006 Document Revised: 01/04/2015 Document Reviewed: ExitCare Patient Information 2015 [facility], [facility]. This information is not intended to replace advice given to you by your health care provider. Make sure you discuss any questions you have with your health care provider. No follow up information was provided. Extracted from: Title: Office Visit Note Author: Owen Clark MD Date: 08/04/15 Assessment/Plan Afib The patient's issue is nearly or completely resolved. There is no further issues or testing desired by them at this time. Sees Dr. Page. BCC (basal cell carcinoma) The patient's issue is nearly or completely resolved. There is no further issues or testing desired by them at this time. COPD (chronic obstructive pulmonary disease) This issue was reviewed, appears stable, and current therapy continued except as mentioned. Appropriate lab was reviewed from the most recent appropriate entry and lab was ordered if needed in the cpoe/nursing orders, and follow up recommended generally in 90 days and no later then six months. Does not need routinemeds. Gout (disorder) This issue was reviewed, appears stable, and current therapy continued except as mentioned. Appropriate lab was reviewed from the most recent appropriate entry and lab was ordered if needed in the cpoe/nursing orders, and follow up recommended generally in 90 days and no later then six months. Lab pending. Ordered: Uric Acid HTN (hypertension) This issue was reviewed, appears [...] been no chest pain, chest pressure, soa/manrique. Declines any meds changes today. Sees Dr. Page also. Ordered: CBC w/ Differential Comprehensive Metabolic Panel Urinalysis with Culture if Indicated Osteoarthritis This issue was reviewed, appears stable, and current therapy continued except as mentioned. Appropriate lab was reviewed from the most recent appropriate entry and lab was ordered if needed in the cpoe/nursing orders, and follow up recommended generally in 90 days and no later then six months. Prostatism The patient's issue is nearly or completely resolved. There is no further issues or testing desired by them at this time. Declines any meds at this time. PSA utd from 09/2014. Pure hypercholesterolemia (disorder) This issue was reviewed, appears stable, and current therapy continued except as mentioned. Appropriate lab was reviewed from the most recent appropriate entry and lab was ordered if needed in the cpoe/nursing orders, and follow up recommended generally in 90 days and no later then six months. Lab was done with Dr. Page and was stableby report.Written scripts given. Orders: allopurinol, 300 mg 1 tabs, Oral, Daily, # 90 tabs, 2 Refill(s) bumetanide, 1 mg 1 tabs, Oral, Daily, # 90 tabs, 2 Refill(s) metoprolol, 50 mg 0.5 tabs, Oral, Daily, # 90 tabs, 3 Refill(s) potassium chloride, 10 mEq 1 tabs, Oral, Daily, # 90 tabs, 2 Refill(s) tamsulosin, 0.4 mg 1 caps, Oral, Daily, # 90 caps, 2 Refill(s)
[2016-11-27] MEDS ORDERED: DILT-36 PO (08:45)
[2016-11-27] MEDS ORDERED: NITROGLYCERIN 0.4 MG SUBLINGUAL TABLET SL PRN (08:45)
--- NOTE | 2016-11-27 08:55 | NUR ---
NITRO GIVEN SL AT THIS TIME. PT REPORTS PAIN IS 1/10 PRIOR TO NITRO
--- OUTSIDE RECORDS SUMMARY | 2016-11-27 08:56 | XMS REPORT | Continuity of Care Document ---
Author Author [facility] Organization [facility] Address Unknown Phone Unavailable Allergies Active Description Code Type Severity Reaction Onset Reported/Identified Relationship to Patient Clinical Status Yes No Known Medication Allergies NKMA N/A N/A 09/09/2014 Medications Problems Procedures Results Encounters ACCT No. Visit Date/Time Discharge Status Pt. Type Provider Facility Loc./Unit Complaint [id number] 11/15/2016 07:45:00 2016 23:59:00 DIS Outpatient Owen Clark [facility] 6 mo galilea [id number] 05/17/2016 08:43:00 2015 23:59:00 DIS Outpatient Owen Clark [facility] TCPA medication check [id number] 01/10/2016 13:53:00 2015 23:59:00 DIS Outpatient Guillermina Menendez [facility] ACC hurt right foot [id number] 11/18/2015 07:41:00 2015 23:59:00 DIS Outpatient Owen Clark [facility] Followup pain in ankle [id number] 09/08/2015 14:44:00 2015 23:59:00 DIS Outpatient Owen Clark [facility] Tendonitis in right foot [id number] 08/04/2015 14:45:00 2014 23:59:00 DIS Outpatient Owen Clark [facility] NPV Dr Jennings pt to est [id number] 03/15/2015 13:20:00 2014 23:59:00 DIS Outpatient Calixto Jennings [facility] med ck [id number] 09/09/2014 10:13:00 2014 23:59:00 DIS Outpatient Calixto Jennings [facility] Check up
--- OUTSIDE RECORDS SUMMARY | 2016-11-27 08:56 | XMS REPORT | Continuity of Care Document ---
Author Author [facility] Organization [facility] Address Unknown Phone Unavailable Support Name Relationship Address Phone ENRIQUE FOUNTAIN MD Caregiver [address] [place] [phone] ARA LEE MD Caregiver [address] [place] [address] LAWRENCE CALHOUN MD Caregiver [address] [facility] [address] [place] [phone] GRACIE SWENSON Next Of Kin [address] [place] [address] Insurance Providers Payer Name Policy Number Subscriber Name Relationship Medicare [id number] Adryan Swenson 18 [facility] Other [id number] Gracie Swenson 01 Spouse Advance Directives Directive [...] DAILY 11/17/09 09/20/11 Discontinued Triamcinolone Acetonide 2 [place] TWICE A DAY 11/17/09 Active Albuterol [...] of your legs. 3.During office hours, call [phone] 4. After hours, please call [facility] at [phone], and have the jewelry drilling machine operator page your Surgeon IN THE [...] F (96.8 - 99.1) Temperature (Calculated Celsius) 36.16256 degrees C (36.0 - 37.3) Temperature Source [...] 20, 2014 8:18am 6.4 % N 0-9.0 YS-Cun-M-Type Natriuretic Peptide April 20, 2014 8:18am 229 [...] H 4.5-11.0 Name: ADRYAN SWENSON Unit #: [id number] : 1935 Sex: M Loc / Svc: ED DOS: 04/20/14 Signed Report #: [id number] DIAGNOSTIC IMAGING REPORT TYPE OF EXAM: CHEST [...] procedures. Encounters Encounter Location Date/Time Discharged Inpatient [facility] 04/20/14 10:17am Recent Diagnosis New onset atrial fibrillation Atrial fibrillation with rapid ventricular response New onset atrial fibrillation
--- NOTE | 2016-11-27 08:58 | ERPDOC ---
Departure Disposition Decision Date: Nov 27, 2016 Disposition Decision Time: 10:40 Disposition: 01 DISCHARGED HOME, SELF-CARE Impression Impression Impression: Primary Impression: Atypical chest pain Severity: Moderate Condition: Stable Seen By: Physician only Referrals: DEVANTE AMATO MD (Family) LAWRENCE PAGE MD 1 Week Patient Instructions: Noncardiac Chest Pain (ED) Problems/Meds/Labs Reviewed?: Yes Medications reviewed and manag: Yes Additional Instructions: Home to rest today. Continue same medications. Your chest pain does not seem to be related to your heart. Follow up with Dr Page. Try Tylenol for the chest pain and a heating pad to the chest. Follow up care ordered?: Yes Mental Status: Alert, Oriented HPI - Chest Pain General Chief Complaint: Chest Pain Stated Complaint: CP Time Seen by Provider: 08:32 Source: patient, RN notes reviewed, old records Exam Limitations: no limitations HPI - Chest Pain Initial Comments This patient presents to the ER complaining of chest pain that he noticed after he woke up while he was still laying in bed. The pain is like a tightness that occasionally gets worse and sharp. It seemed to get a little worse when he got up and took out the trash. He has not had any associated dyspnea, diaphoresis or nausea with this. He has a history of atrial fibrillation and was worried that maybe he had gone back into that again. Occurred At: home Onset/Timing: Rapid Duration: 1-3 hrs Pain/Severity Scale: Now: 1/10 Activities at Onset/Context: activity Location: anterior R Quality: sharp, tightness Associated Symptoms: denies symptoms Chest Pain Radiation: no radiation Nitro Today/Relief: 0.4 mg x 1, provided by ED, no relief Aspirin Treatment Today: contraindicated Aspirin contraindicated becaus: On Anticoagulant Therapy Prior Chest Pain/Cardiac Kaylene: echocardiography, other (THANH) Hx of Similar Symptoms: Yes Allergies: Coded Allergies: NKDA (Verified Allergy, Unknown, 11/27/16) Viagra/ED med in past 36 hrs: No Past History Past Medical History Metabolic: gout, hypercholesterolemia, hypertension ENMT: allergies, cataracts, sinusitis Cardiac: A-fib, other (MVP) Respiratory: COPD, asthma Male: BPH Musculoskeletal: osteoarthritis Surgical History General: colonoscopy, other (rhinoscopy) Joint: knee Vaccines Hx Influenza Vaccination: Yes (JUNE 2016) Hx Pneumococcal Vaccination: Yes (HAS HAD BOTH 13 AND 23) Social History Smoking Status: Unknown if ever smoked Substance Use Type: does not use Alcohol Intake: none, occasionally Sexuality: female partner Record Review Pertinent history updated: Yes Review of Systems Constitutional Constitutional: DENIES: appetite decrease, chills, dizziness, fever, weakness Eyes General: DENIES: pain Lids/Accessories: DENIES: erythema Vision: DENIES: blurring ENMT Ears: DENIES: pain Hearing: DENIES: hearing loss Balance: DENIES: vertigo Sinuses: DENIES: congestion, rhinorrhea Mouth/Throat: DENIES: sore throat Teeth: DENIES: pain Cardiovascular Cardiac: chest pain, dyspnea on exertion, see HPI Rhythm/Rate: DENIES: palpitations Vascular: DENIES: pedal edema, unilateral swelling Pulmonary Respiratory: see HPI GI Upper Abdomen: DENIES: heartburn/indigestion, nausea, vomiting Lower Abdomen: DENIES: blood in stool, constipation, diarrhea General: frequency, DENIES: dysuria, hematuria Male: DENIES: hesitancy Musculoskeletal General: joint pain, DENIES: pain Comments knees thumbs, ankles Integumentary Skin: DENIES: itching, rash Neurological General: DENIES: headache, memory disturbances, seizures, syncope Psychiatric Psychiatric: DENIES: anxiety, depression Endocrine Endocrine: DENIES: heat/cold intolerance Hematologic/Lymphatic Hematologic/Lymphatic: DENIES: anemia, easy bruising Allergic/Immunological Allergic/Immunoligical: DENIES: hives All other Systems All Other Systems: Reviewed and Negative Physical Exam General General Nourishment: well nourished, well developed, appears stated age, no acute distress, adult General Body Habitus: well groomed Vitals and Pain First Documented Vital Signs Date Time Temp Pulse Resp B/P Pulse Ox O2 Delivery O2 Flow Rate FiO2 11/27/16 08:20 98.4 64 16 177/81 96 Room Air Weight: Kilograms: 98.200 Height (feet): 5 Height (inches): 10.00 Triage Pain Scale: RN VS reviewed by Provider: Yes Comments appears mildly anxious Normal Exams: Head: Normocephalic w/o trauma Eyes: Pupils are PERRLA w/ EOMI, No scleral icterus, irritation, or foreign bodies noted ENMT: No facial trauma, nasal exudates, pharyngeal erythema, or exudates are noted Dental: No fractured, loose, or missing teeth noted Neck: Full range of motion, without adenopathy, JVD, bruits or thyromegaly Chest/Resp: Clear all lai, with good airflow, and symmetry bilaterally CV: Regular rate and rhythm, without murmur or gallop, Pulses 2+ all extremities, capillary refill, <2 seconds all ext., no pedal edema noted Abdomen: Bowel sounds positive, soft, non-tender, non-distended, no hepatosplenomegaly, masses or bruits noted Musculoskeletal: No tenderness, or deformity noted, good range of motion, all extremities Integumentary: No rashes, hives, or bruising noted, hair and nails, without abnormality Neurologic: Patient is alert, and oriented, cranial nerves, motor/sensory/ cerebellar, exams w/o gross deficits, to observation Psychiatric: Patient exhibits, appropriate attention, emotion and affect Differential Diagnoses Considering: Acute OK, Anxiety/Panic, Esophageal Spasm, GERD, Muscle Spasm, Other (MVP) Progress Results/Orders Orders Lab Results Medications Current ED Medications Nitroglycerin (Nitrostat) 0.4 mg Q5MIN PRN SL CHEST PAIN Last administered on 08:56; Start 11/27/16 at 08:45; Stop 11/27/16 at 11:28; Status DC Lorazepam (Ativan) 0.5 mg O ONCE PO Last administered on 11/27/16 09:31; Start 11/27/16 at 09:15; Stop 11/27/16 at 09:16; Status DC Progress Progress Patient given one nitro -- no change in pain, but dropped BP. Given one Lorazepam, pain resolved. Labs negative, EKG unchanged, CXR okay. Doubt cardiac etiology. Discussed with Dr Page. If a repeat troponin is okay, he may follow up in office. EKG EKG : Rate: 60-100 (63) Rhythm: sinus [place]: left QRS: RBBB (incomplete), fasicular block (left anterior) Other: PVC Interpreted by: signing physician EKG Comments no significant ST changes since 09/20/16 EKG Consult/PCP Consult/PCP : Type of discussion: Phone Consult/PCP Time Arrived: 10:[address] Page came to ER between caths. He reviewed EKG and labs. ARA ELE MD Nov 27, 2016 08:58 BUN/Creatinine Ratio 17RATIO Glucose Level 103MG/DL Calculated Osmolality 273MOSM/KG Calcium Level 9.1MG/DL Icterus Index < 2 Troponin I < 0.012ng/ml < 0.012ng/ml [id number]-Type Natriuretic Peptide 170PG/ML Chemistry Specimen Hemolysis 27 < 15 Medications Current ED Medications Nitroglycerin (Nitrostat) 0.4 mg Q5MIN PRN SL CHEST PAIN Last administered on 08:56; Start 11/27/16 at 08:45; Stop 11/27/16 at 11:28; Status DC Lorazepam (Ativan) 0.5 mg O ONCE PO Last administered on 11/27/16 09:31; Start 11/27/16 at 09:15; Stop 11/27/16 at 09:16; Status DC EKG EKG : Rate: 60-100 (63) Rhythm: sinus [place]: left QRS: RBBB (incomplete), fasicular block (left anterior) Other: PVC Interpreted by: signing physician EKG Comments no significant ST changes since 09/20/16 EKG ARA LEE MD Nov 27, 2016 08:58
--- NOTE | 2016-11-27 09:01 | NUR ---
STATUS PT REPORTS PAIN IS UNCHANGED AFTER NITRO, BP DOWN TO 125/60. DR. Patricia LEE NOTIFIED AND REPORTS OKAY TO HOLD OFF ON FURTHER NITRO AT THIS TIME.
[2016-11-27 09:15] LABS: BASOPHILS % (AUTO) 0.3 % (0-2); EOSINOPHILS # (AUTO) 0.2 T/MM3 (0-0.5); EOSINOPHILS % (AUTO) 1.6 % (0-4); HCT - HEMATOCRIT 45.1 % (41-53); HGB - HEMOGLOBIN 15.2 GM/DL (13.5-17.5); IMMATURE GRANULOCYTE # (AUTO) 0.01 T/MM3 (0.00-0.03); IMMATURE GRANULOCYTE % (AUTO) 0.1 % (0.0-0.5); INR 1.25 (0.76-1.04); LYMPHOCYTES # (AUTO) 2.3 T/MM3 (1-4.8); LYMPHOCYTES % (AUTO) 19.6 % (23-45); MEAN CORPUSCULAR HGB 30.5 UUG (26-34); MEAN CORPUSCULAR HGB CONC(MCHC 33.7 GM/DL (31-37); MEAN CORPUSCULAR VOLUME 90.4 UM3 (80-100); MEAN PLATELET VOLUME 11.8 UM3 (9.4-12.4); MONOCYTES # (AUTO) 0.9 T/MM3 (0-0.8); MONOCYTES % (AUTO) 7.7 % (0-9.0); NEUTROPHILS #(AUTO)-ABSOLUTE 8.3 T/MM3 (1.8-7.7); NEUTROPHILS % (AUTO) 70.7 % (33-66); PROTHROMBIN TIME 13.6 SEC (9.31-12.49); RED BLOOD COUNT 4.99 M/MM3 (4.50-5.90); WBC - WHITE BLOOD COUNT 11.7 T/MM3 (4.5-11.0)
[2016-11-27] MEDS ORDERED: LORAZEPAM 0.5 MG TABLET PO ONE (09:15)
[2016-11-27 09:22] LABS: ANION GAP 11 MEQ/L (5-15); BUN/CREATININE RATIO 17 RATIO (6-26); CALCIUM 9.1 MG/DL (8.4-10.2); CHLORIDE 107 MEQ/L (98-107); CO2 - CARBON DIOXIDE 23 MEQ/L (22-30); CREATININE 1.1 MG/DL (0.8-1.5); GLOMERULAR FILTRATION RATE 64; GLUCOSE 103 MG/DL (75-110); POTASSIUM 4.5 MEQ/L (3.6-5); SODIUM 141 MEQ/L (134-144)
--- NOTE | 2016-11-27 09:22 | DI ---
Indication: ITS.REASON: chest pain PROCEDURE: CHEST 1 VIEW: Encounter: Initial Comparison: Portable chest, 04/20/2014 Findings: A single portable chest radiograph is submitted. Clear lungs. Unenlarged heart. Pleural spaces clear. Possible plate of atelectasis or scar near left heart border in the basal region. Trachea midline. No pulmonary vascular engorgement. Monitor leads overlie the chest. Degenerative changes of the osseous elements, age compatible. Impression: Question minimal platelike atelectasis or scarring in the left base; otherwise negative for acute chest disease. .
[2016-11-27 09:34] LABS: PROBNP 170 PG/ML (0-175)
--- NOTE | 2016-11-27 09:37 | NUR ---
UPDATE PATIENT REPORTS CHEST PAIN IS GONE AT THIS TIME. DENIES NEEDS.
--- NOTE | 2016-11-27 10:05 | NUR ---
UPDATE PATIENT LYING IN BED, RESTING COMFORTABLY, DENIES ANY CHEST PAIN AT THIS TIME.
--- NOTE | 2016-11-27 11:13 | NUR ---
PROVIDER DR Samantha LEE AT BEDSIDE TO DISCUSS POC
--- NOTE | 2016-11-27 11:17 | NUR ---
LAB LAB AT BEDSIDE FOR REPEAT BLOOD DRAW
[2016-11-27 11:20] VITALS: BP 138/65; PULSE 57; RESP 20; TEMP 98.4; O2SAT 97
== END 2016-11-27 11:20 | disposition home or self-care (01) ==
LOC: ED 08:19
DX: R07.89 Other chest pain (principal); I10 Essential (primary) hypertension; I48.91 Unspecified atrial fibrillation; Z79.01 Long term (current) use of anticoagulants; Z87.891 Personal history of nicotine dependence
CPT/HCPCS: 36415; 71010; 80048; 83880; 84484; 85025; 85610; 93005; 99284; A9270